=== PATIENT | male | born 1940 | race Caucasian/White ===

== ENCOUNTER 2018-01-13 16:06 | Inpatient (IN) ==
[2018-01-13] MEDS ORDERED: Bisacodyl 10 MG Supp RECTAL PRN (16:12)
[2018-01-13] MEDS ORDERED: Dextrose 50% in Water 50 ML Vial IV.PUSH PRN (16:30)
--- NOTE | 2018-01-13 16:42 | XR ---
EXAM DATE: 01/13/2018 4:40 PM EDT AGE/SEX: 77 years / Male INDICATIONS: Short of breath. CLINICAL DATA: This is the patient's subsequent encounter. Patient reports that signs and symptoms h ave been present for 1 week and indicates a pain score of 0/10. MEDICAL/SURGICAL HISTORY: Hypothyroidism. Anemia. Aortic stenosis. Arteriovenous malformation of colon. CAD. Cardiomyopathy. CKD. Hyperlipidemia. CHF. Cirrhosis. Sleep apnea. Tricuspid regurgitat ion. Venous thromboembolism. Kidney failure. CABG. Defibrillator. Cardiac cath with stent. . COMPARISON: [facility], CHEST 1V SINGLE AP, 01/12/2018. . FINDINGS: A pacing implement is present with control pack over left upper chest. There is mild vascular congest ion and mild hazy bibasilar and perihilar pleural-parenchymal opacity which may be developing edema. CONCLUSION: Probable mild CHF Electronically signed by: Mohit Rogers MD 01/13/2018 4:41 PM EDT
--- NOTE | 2018-01-13 17:09 | P.PNPSYCH ---
- Emotional Severe: Depressed/sad - Diagnosis (1) Acute adjustment disorder with depressed mood Status: Acute - Progress Notes/Response to Treatment Contents of Sessions: Challenges, Coping, Family, Loss, Medical Procedure and Time with Patient: Psychotherapy 16548, 16-37 minutes Targeted Symptoms/Reason for Referral: All symptoms related to patient adjusting to decreased functional ability immediately following medical stay, to encourage ongoing program participation, and to provide empathic listening as patient processes thoughts and feelings about medical complexities. Symptoms include, but are not limited to, fluctuating levels of anxiety, depressed mood, and frustration related to loss of independence and autonomy. Type of Therapeutic Intervention: Supportive, interpersonal, insight oriented, with collateral focus on family/ caregiver system as needed. Treatment Plan: The plan is to continue to provide supportive psychotherapy throughout the patient's stay in the facility. Progress Toward Goals / Interaction/Reaction to Therapy: Met with the patient, his son, and his . His and son present as caring , attentive, and grief stricken with the news that his medical complexities are so significant. Provided support and education regarding how to best cope with his likely upcoming decline. The patient is pleasant, lethargic, and sad, as he tries to understand the choices he and his family are facing regarding his health status. Diagnosis F 43.21 acute adjustment disorder with depressed mood
--- NOTE | 2018-01-13 17:34 | P.PNPAL ---
Subjective Subjective/Interval History: 1700 Patient with acute change in status transferred from [facility] to intensive care. Palliative reconsulted to follow patient during ICU course. Patient already known to palliative had family meeting with family earlier today , see initial H&P and consultation under [facility] rehab admission. Notified of transfer to ICU, discussed with ICU nurse, critical care Dr. Sanchez. Patient mildly tachypneic. O2 sats in the 90s. Cardiac ectopy visible on bedside monitor. Neurologic status appears about the same as earlier he will respond some to questions but for the most part is lethargic.. Met again with family at bedside reviewed with them his underlying conditions and transfer from rehab to ICU for closer monitoring of cardiac, renal, and respiratory status. Review he will now be under intensive care physician care and that likely will have additional labs, diagnostics etc. Reviewed that his underlying conditions remain unchanged and he continues to remain at high risk for deterioration and could necessitate intubation, cardiac intervention etc. Reviewed the possibility of invasive IVs etc. Review again with him CODE STATUS. is still struggling with CODE STATUS she indicates that this time she needs everything to be done for him. Son does indicate that going forward he would not want to be maintained on a ventilator or life support, and that they would still like to meet with hospice and are still considering that as an option. All questions answered to the best of my ability, they have my contact information. H&P from initial consultation yesterday 01/12/18 in [facility] setting: This pt was admitted to [facility] inpatient rehab on 01/08/18. he was admitted from [facility] where he was following acute hospitalization at [facility]. She was admitted there for SOB, edema, CHF. She has apparently had several admissions during 2018 for acute CHF. She has known EF 20 -25% per ECHO 12/07/17, and has biventricular ICD. He has multiple chronic medical problems : MALICK on CPAP, liver cirrhosis, thrombocytopenia, afib on chronic Coumadin, hypertension, CAD, aortic stenosis, tricuspid regurg. He had some acute renal dysfunction during recent hospitalization, however improved at d/c to [facility]. He is on chronic O2. * He is noted to have an ED presentation a few days prior to this on 01/02, in which his noted edema by being on Lasix and requested evaluation. He was noted at that time he presented a challenging management scenario due to fluid status, as well as cardiac status. Recommended for close outpatient monitoring at that time he was not treated with IV hydration or diuresis based on diagnostics. During rehab course he is receiving wraps to lower extremities to assist with edema and fluid mobilization. He is continued diuretics, monitoring of elevated renal functions. Chronic anemia noted. An of INR for chronic Coumadin therapy. Having some diarrhea, C. difficile negative. He is working with PT 60 minutes a day, 5 days per week, OT 60 minutes 5 days per week, and speech therapy 60 minutes 5 days per week. Hospitalist consulted to assist with medical management of his complex medical comorbidities. He is unable to tolerate Entresto due to hypotension. He is continued on diuretics. Nephrology consulted 01/10 for increasing renal functions. (bun 37-->40, creat 2.45-->2.72) Nephrology notes acute kidney failure though not clear what his true baseline is. Clinically appears to have volume overload. Ultrasound obtained. Continue diuretics discontinued lisinopril. Likely with cardiorenal syndrome. unclear if renal function will improve. Prognosis is guarded to poor. Abdominal ultrasound=1. Cirrhotic liver with small amount ascites.2. Trace bilateral pleural effusions, right greater than left 01/12 renal functioning worse BUN44/creat 3.10, nephrology notes cardiorenal syndrome. Will do poorly with dialysis due to multiorgan issues. Patient increasingly lethargic, ammonia levels pending. Nephrology apparently discussed hospice recommendation with patient . + UTI, on Augmentin. Ammonia = 54 Palliative care consulted to assist with clarification of goals of medical treatment. FOLLOW UP MEETING WITH FAMILY WEDS AM: Met with patient son, at length approximally 45 minutes discussion included the following: * Palliative care role, purpose, approach * Additional medical, psychosocial, and spiritual history * Patients general health, functional status, and cognitive changes in the months leading up to the current hospitalization-- details had an acute hospitalization in September of this year for pneumonia, fluid overload seemed to stabilize and recover and then days following that again had acute respiratory, fluid issues and "did not bounce back as well ", and since that time has been in and out of the hospital and rehab setting. Prior to that episode in September he lives at home was independent with ADLs and doing fairly well day-to-day. * family understanding of the current medical problems-review of diagnoses, diagnostics, current clinical assessment, limited treatment options * family understanding of prognosis--review cardiorenal is terminal due to limited ability to treat conditions * Patients goals of care as best understood from advance directives and/or conversations and/or values * Current medical treatment options and benefits/burdens of those options-very limited treatment options going forward for cardiorenal syndrome patient will be expected to require ICU course condition will be terminal at some point even with ongoing aggressive management. * Likely scenarios comparing ongoing aggressive care with a transition to `` comfort measures only//review of role, philosophy, services provided; symptom- based treatment versus curative treatment * CODE STATUS- they are struggling with possible DNR, request full code for now while they discuss as a family * Legal decision makers per [place] statutes- is proxy. she wishes to involve his children for support. * Questions answered to the best of my ability * Palliative care contact information provided and son are appropriately tearful at times . They are struggling to accept patient decline , they verbalize they have seen him "bounce back "from so many illnesses since his initial WA in the . They verbalize if patient is expected to continue to decline and conditions are not reversible he would probably want to be home and comfortable for whatever time he has left. However they are struggling to make him a DNR, review with them that he is high risk for intubation and subsequent cardiac decline and that if he is intubated it would be very unlikely he would be able to be medically extubated and he would remain high risk for other further complications during that course. Review of hospice services they indicate ultimately he would probably want to go home with hospice services to be peaceful at end-of-life. They are open to meeting with hospice to gain more information though indicate they would not likely proceed with enrollment today they need more time to talk as a family and process. They indicate the patient never documented his wishes nor would he ever talk about or illness and what his wishes would be. Advance Directives Living Will: Never completed Health Care Surrogate: Never completed Durable Power of Documentum Consultant: Never completed Objective Physical Exam: SEE PE earlier note under [facility] admission Assessment and Plan Pertinent Non-Medical Issues: Psychosocial: Originally from [place]. 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 Spiritual:Gnosticist Legal:Pt has been alert and oriented, however orientation, alertness fluctuates , likely secondary to his multiple medical conditions. Best supported in decision-making by his who would be appropriate legal proxy. Ethical issues impacting care: Important Contacts: Katie Calderon [phone] [facility] [phone] Prognosis: This patient was admitted to [facility] for acute inpatient rehabilitation on 01/08/18. He has had multiple hospitalizations this year for CHF, shortness of breath and edema. He has had acute on chronic renal failure. He has had worsening BUN and multiple chronic medical comorbidities including MALICK requiring CPAP, O2 dependent, liver cirrhosis, A. fib on chronic Coumadin, aortic stenosis. He would not be a good candidate for dialysis due to multiorgan issues. He has had hypotension. increasingly difficult to treat his heart failure secondary to renal failure, renal failure worsening secondary to cardiac status. His conditions will continue to worsen even with ongoing aggressive management. Appropriate for hospice for ES heart failure, if goals compatible. Code Status: Full Code Plan: Legal decision maker: Legal:Pt has been alert and oriented, however orientation , alertness fluctuates, likely secondary to his multiple medical conditions. Best supported in decision-making by his who would be appropriate legal proxy Goals: , son struggling to accept patient decline and deteriorating condition. They are not ready for a DNR. They request to meet with hospice to obtain more information they will likely want movement at some point though are not quite ready today. Hospice has been ordered. They wish to continue discussions , and processing over the next day or so. CODE STATUS: full code. SYMPTOMS: --Dyspnea-poor activity tolerance. Dyspnea on any exertion. O2 dependent. MALICK uses CPAP at night. End-stage heart failure EF 20-25%. Underlying COPD. Last CXR 01/08=Cardiomegaly with basilar dependent atelectasis. On PRN nebulizers. If goals comfort oriented benefit from low dose PRN opiates, benzodiazepines for tachypnea, dyspnea. --Weakness/debility-patient with multiple hospitalizations during 2018 for CHF, recently discharged to [facility] and rehab for rehab, and then to [facility] from [facility]. He has very limited activity tolerance secondary to medical conditions which limited his ability to rehabilitate. He has impaired coordination and is requiring assistance with ADLs. Likely limited to minimal benefits from ongoing rehabilitation to deconditioning, multiple advanced disease processes. --Pain-endorses pain to bilateral lower extremities. +chronic edema, compression wraps. probably neuropathic component. On lyrica, + prn ultram, tylenol. Last dose ultram 12 midnight. Avoid use/ Cautious use of stronger prns /opiates due to neuro/resp status if goals aggressive. If goals comfort oriented may benefit from PRN such as norco. Palliative care will continue to follow during hospital course as condition evolves, to assist patient/decision-maker with understanding of medical conditions, weighing benefits/burdens of treatment options, for clarification of goals of treatment. Additionally will assist with any symptoms of palliative concern Attestation Attestation: To help prompt me to consider important information that might be impacting today's encounter and assessment, information from prior notes written by myself or my colleagues may have been "brought forward" into today's note. My signature on this note, however, is an attestation that I personally performed the exam, history, and/or decision-making noted today, and, unless otherwise indicated, the interactions with patient, family, and staff as well as the review of records all occurred today. I also attest that the listed assessment and stated plan reflect my best clinical judgment today based on the combination of historical information, prior notes, and today's exam/ interactions. When time spent is documented, it refers only to time spent today by the signer, or if indicated, combined time spent today by collaborating physician/nurse practitioner.
--- NOTE | 2018-01-13 18:53 | MB ---
cc: Brigido Moyer MD DATE: 01/13/2018 HISTORY OF PRESENT ILLNESS: The patient is a 77-year-old male with multiple comorbidities which include cirrhosis of the liver, COPD, obstructive sleep apnea on CPAP, hypothyroidism, atrial fibrillation on Coumadin, hypertension, coronary artery disease with history of coronary artery bypass graft and aortic stenosis. In addition, the patient has a cardiomyopathy with ejection fraction of 20% to 25% on the last echo from 12/07/2017 and has a biventricular ICD. He had several admissions this year due to [id number] CHF. The patient was admitted to [facility] on 01/08/2018 for CHF compensation and renal failure. The patient was found to have a BUN of 37 with creatinine of 2.45 on admission and during his hospital course, he was seen by nephrology service and palliative care. The patient had worsening renal dysfunction with a BUN of 44 and creatinine 3.90. He had an ultrasound of the abdomen on 01/11, which showed cirrhosis of liver with small amount of ascites, trace bilateral pleural effusions with no evidence of hydronephrosis. The patient was placed on diuretics. In [facility], patient had an episode of hypotension and was subsequently transferred to ICU for close observation. Critical Care Medicine was consulted for critical care management. ABG was performed on CPAP with 3.5 liter oxygen, which showed a pH of 7.42, CO2 36, pO2 of 71, bicarbonate of 22, and saturation of 91%. When seen in the ICU the patient is awake, alert, currently on 2 liter oxygen with saturation 99% and a blood pressure of 103/67 with a pulse of 71. PAST MEDICAL HISTORY: Significant for COPD, obstructive sleep apnea on CPAP, CHF with EF of 20% to 25%, cirrhosis of the liver, chronic kidney disease, aortic stenosis, anemia of chronic disease. PAST SURGICAL HISTORY: Previous CABG, previous cholecystectomy, previous stent placement. FAMILY HISTORY: Noncontributory. ALLERGIES: LEVAQUIN AND PREDNISONE. SOCIAL HISTORY: Nonsmoker, nondrinker. MEDICATIONS: Reviewed. REVIEW OF SYSTEMS: As per HPI. Rest of review of his systems is limited as the patient is a poor historian. PHYSICAL EXAMINATION: GENERAL: A 77-year-old male lying in bed in no acute distress. VITAL SIGNS: Afebrile, pulse of 73, blood pressure 103/67, saturation 96% to 97% on 2 liter oxygen. HEENT: Atraumatic, normocephalic. Pupils are equal, round and reactive to the accommodation. Extraocular muscles intact. Conjunctivae pink. Nonicteric sclerae. Oral mucosa within normal. NECK: Supple. No JVD, adenopathy, or thyromegaly. Trachea midline. CARDIOVASCULAR: Regular rate and rhythm. Normal S1, S2. No murmurs, rubs or gallops noted. LUNGS: Bilateral equal air entry. No rales or wheezing. ABDOMEN: Soft, nontender, nondistended. Positive bowel sounds. EXTREMITIES: No cyanosis, clubbing. 3+ edema. NEUROLOGIC: No focal sensory deficit. LABORATORY DATA: ABG showed a pH of 7.42, CO2 36, PaO2 71, bicarbonate 22, saturation 91%. LABORATORY DATA: Reviewed. IMPRESSION: 1. Respiratory insufficiency. 2. Zvyde-vu-kzslxfc kidney disease. 3. Urinary tract infection. 4. Coagulopathy. 5. Cirrhosis of liver. 6. Anemia and thrombocytopenia. 7. Cardiomyopathy with ejection fraction of 20% to 25%. 8. History of congestive heart failure and moderate to severe aortic stenosis. 9. Atrial fibrillation, rate controlled. 10. Coronary artery disease. 11. Chronic obstructive pulmonary disease. 12. Obstructive sleep apnea on CPAP. RECOMMENDATIONS: 1. Monitor neuro status closely and avoid any sedatives. We will obtain a CT scan of the brain without contrast. 2. Continue with oxygen and maintain sats above 92%. 3. Bronchodilators in the form of DuoNeb q. 4 plus q. 2 p.r.n. for shortness of breath. 4. Monitor heart rate and blood pressure closely and maintain MAP greater than 65 mmHg. We will check a lactic acid level. Hold Coreg, Multaq, and Aldactone. 5. His echocardiogram from November showed fraction of 20% to 25%. 6. Continue with diuretics, Lasix 40 mg IV daily. 7. Monitor renal function and I's and O's, and avoid nephrotoxins. Dr. Preston from nephrology service is following. Continue with diuretics. Ultrasound of the abdomen from 01/11 showed no evidence of hydronephrosis, cirrhosis of the liver with small amount of ascites. 8. Keep n.p.o. for now until mental status improves and will place on Protonix 40 mg daily for GI prophylaxis. 9. Monitor for signs of infections which include fever and WBC. We will place on Rocephin 1 g IV daily for a urinary tract infection. We will obtain blood cultures x2 sets. Repeat UA with culture if indicated and check chest x-ray. 10. Monitor CBC and coags. INR 3.1 today. We will hold Coumadin. 11. Place on sliding scale insulin with Accu-Cheks to maintain euglycemia. 12. GI prophylaxis with Protonix 40 mg daily and DVT prophylaxis with SCDs. In addition, the patient is on Coumadin, which will be held. INR 3.[address] central line if indicated. 14. Further recommendations will be based on hospital course. MD GEMA Campbell/ , 04:48 PM , 05:03 PM
[2018-01-13 18:57] LABS: Baso # (Auto) 0.1 th/mm3 (0.0-0.2); Baso % (Auto) 1.1 % (0.0-2.0); Eos # (Auto) 0.2 th/mm3 (0.0-0.4); Eos % (Auto) 3.7 % (0.0-4.0); Hematocrit 38.7 % (39.0-51.0); Hemoglobin 12.9 gm/dL (13.0-17.0); Lymph # (Auto) 1.3 th/mm3 (1.0-4.8); Lymph % (Auto) 20.7 % (9.0-44.0); Mean Corpuscular HGB Conc 33.4 % (32.0-36.0); Mean Corpuscular Hemoglobin 29.5 pg (27.0-34.0); Mean Corpuscular Volume 88.3 fL (80.0-100.0); Mean Platelet Volume 11.1 fL (7.0-11.0); Mono # (Auto) 0.7 th/mm3 (0.0-0.9); Neut # (Auto) 4.1 th/mm3 (1.8-7.7); Neut % (Auto) 63.5 % (16.0-70.0); Platelet Count 107 th/mm3 (150-450); Red Blood Count 4.38 mil/mm3 (4.50-5.90); Red Cell Distribution Width 18.2 % (11.6-17.2); White Blood Count 6.5 th/mm3 (4.0-11.0)
[2018-01-13 19:11] LABS: Albumin 3.3 g/dL (3.4-5.0); Anion Gap 12 meq/L (5-15); Aspartate Aminotransferase 35 U/L (15-37); Blood Urea Nitrogen 49 mg/dL (7-18); Calcium 8.9 mg/dL (8.5-10.1); Carbon Dioxide 24.2 meq/L (21.0-32.0); Chloride 98 meq/L (98-107); Glomerular Filtration Rate 15 mL/min (>89); Glucose,Random 94 mg/dL (74-106); Sodium 134 meq/L (136-145)
[2018-01-13 19:12] LABS: Alanine Aminotransferase 34 U/L (12-78)
[2018-01-13 19:14] LABS: Alkaline Phosphatase 96 U/L (45-117); Total Protein 6.3 g/dL (6.4-8.2)
[2018-01-13 19:38] LABS: Ovalocytes 1+
--- NOTE | 2018-01-13 20:04 | CT ---
EXAM DATE: 01/13/2018 7:51 PM EDT AGE/SEX: 77 years / Male INDICATIONS: Altered mental status. CLINICAL DATA: This is the patient's initial encounter. Patient reports that signs and symptoms have been present for 1 day and indicates a pain score of 0/10. MEDICAL/SURGICAL HISTORY: Cardiovascular disease. Hypertension. Anemia. Chronic kidney disease. None. RADIATION DOSE: 42.53 CTDI (mGy) COMPARISON: [facility], CT HEAD W/O CONTRAST, 01/09/2018. . TECHNIQUE: CT of the head without contrast. Using automated exposure control and adjustment of the mA and/or kV according to patient size, radiation dose was kept as low as reasonably achievable to ob tain optimal diagnostic quality images. DICOM format image data is available electronically for revi ew and comparison. FINDINGS: Cerebrum: The ventricles are normal for age. No evidence of midline shift, mass lesion, hemorrhage or acute infarction. No extraaxial fluid collections are seen. Posterior Fossa: The cerebellum and brainstem are intact. The 4th ventricle is midline. The cerebe llopontine angle is unremarkable. Extracranial: The visualized portion of the orbits is intact. Skull: The calvaria is intact. No evidence of skull fracture. CONCLUSION: 1. Negative for acute process . Electronically signed by: Akhil Cuellar MD 01/13/2018 8:03 PM EDT
[2018-01-13] MEDS: Senna/Docusate Sodium 8.6/50 MG Tablet PO SCH (20:48)
[2018-01-13] MEDS: Insulin NovoLIN Regular Correctional Sugar Inj SQ SCH (20:50)
[2018-01-14] MEDS: Insulin NovoLIN Regular Correctional Sugar Inj SQ SCH ×6 (00:17→20:45)
[2018-01-14] MEDS: Chlorhexidine Gluconate 2% 1 Pack (2 Cloths) TOPICAL SCH (03:49)
[2018-01-14] MEDS ORDERED: Chlorhexidine Gluconate 2% 1 Pack (2 Cloths) TOPICAL PRN (04:00)
[2018-01-14 04:20] LABS: Baso # (Auto) 0.1 th/mm3 (0.0-0.2); Baso % (Auto) 1.1 % (0.0-2.0); Eos # (Auto) 0.4 th/mm3 (0.0-0.4); Eos % (Auto) 5.2 % (0.0-4.0); Hematocrit 39.2 % (39.0-51.0); Hemoglobin 12.9 gm/dL (13.0-17.0); Lymph # (Auto) 1.4 th/mm3 (1.0-4.8); Lymph % (Auto) 18.8 % (9.0-44.0); Mean Corpuscular Hemoglobin 29.2 pg (27.0-34.0); Mean Corpuscular Volume 88.7 fL (80.0-100.0); Mean Platelet Volume 11.1 fL (7.0-11.0); Mono # (Auto) 0.9 th/mm3 (0.0-0.9); Mono % (Auto) 11.9 % (0.0-8.0); Neut # (Auto) 4.7 th/mm3 (1.8-7.7); Platelet Count 101 th/mm3 (150-450); Red Blood Count 4.42 mil/mm3 (4.50-5.90); Red Cell Distribution Width 17.8 % (11.6-17.2); White Blood Count 7.5 th/mm3 (4.0-11.0)
[2018-01-14 04:45] LABS: Alanine Aminotransferase 30 U/L (12-78); Anion Gap 12 meq/L (5-15); Aspartate Aminotransferase 26 U/L (15-37); Blood Urea Nitrogen 44 mg/dL (7-18); Calcium 8.7 mg/dL (8.5-10.1); Carbon Dioxide 24.7 meq/L (21.0-32.0); Chloride 99 meq/L (98-107); Glomerular Filtration Rate 16 mL/min (>89); Glucose,Random 69 mg/dL (74-106); Potassium 3.9 meq/L (3.5-5.1); Sodium 136 meq/L (136-145)
[2018-01-14 04:46] LABS: INR 2.7 Ratio; Prothrombin Time 27.7 sec (9.8-11.6)
[2018-01-14 04:47] LABS: Alkaline Phosphatase 88 U/L (45-117); Total Protein 5.8 g/dL (6.4-8.2)
[2018-01-14] MEDS ORDERED: Pantoprazole Inj 40 MG Vial IV.PUSH SCH (09:00)
[2018-01-14] MEDS ORDERED: Dextrose 5%/NaCl 0.9% Inj 1,000 ML IV.CONT SCH (09:15)
[2018-01-14] MEDS: Ferrous Sulfate 325 MG Tablet PO SCH (09:41)
[2018-01-14] MEDS: Senna/Docusate Sodium 8.6/50 MG Tablet PO SCH ×2 (09:41→20:46)
--- NOTE | 2018-01-14 09:46 | P.PNCC ---
Subjective Subjective Remarks/Hospital Course: The patient is a 77-year-old male with multiple comorbidities which include cirrhosis of the liver, COPD, obstructive sleep apnea on CPAP,hypothyroidism, atrial fibrillation on Coumadin, hypertension, coronary artery disease with history of coronary artery bypass graft and aortic stenosis. In addition, the patient has a cardiomyopathy with ejection fraction of 20% to 25% on the last echo from 12/07/2017 and has a biventricular ICD. He had several admissions this year due to [id number] CHF. The patient was admitted to [facility] on 01/08/2018 for CHF compensation and renal failure. The patient was found to have a BUN of 37 with creatinine of 2.45 on admission and during his hospital course, he was seen by nephrology service and palliative care. The patient had worsening renal dysfunction with a BUN of 44 and creatinine 3.90. He had an ultrasound of the abdomen on 01/11, which showed cirrhosis of liver with small amount of ascites, trace bilateral pleural effusions with no evidence of hydronephrosis. The patient was placed on diuretics. In [place] [facility], patient had an episode of hypotension and was subsequently transferred to ICU for close observation. Critical Care Medicine was consulted for critical care management. ABG was performed on CPAP with 3.5 liter oxygen, which showed a pH of 7.42, CO2 36, pO2 of 71, bicarbonate of 22, and saturation of 91%. When seen in the ICU the patient is awake, alert, currently on 2 liter oxygen with saturation 99% and a blood pressure of 103/67 with a pulse of 71. Subjective 16: Currently on 2 L nasal cannula and hemodynamically stable. CT brain overnight revealed no acute intracranial findings. Patient is hypoglycemic this a.m. Objective Vital Signs / I&O: Vital Signs 01/13/18 20:00 01/13/18 20:09 01/13/18 23:47 Temperature 97.9 F Pulse Rate 84 74 73 Respiratory Rate 15 17 24 Blood Pressure 112/79 Pulse Oximetry 95 97 01/13/18 23:49 01/14/18 00:00 01/14/18 04:00 Temperature 97.9 F 97.8 F Pulse Rate 71 69 Respiratory Rate 22 22 Blood Pressure 109/71 105/66 Pulse Oximetry 94 L 96 96 01/14/18 04:13 01/14/18 08:18 Temperature Pulse Rate 70 70 Respiratory Rate 25 H 13 Blood Pressure Pulse Oximetry 96 96 Intake & Output 01/13/18 01/14/18 01/14/18 18:59 06:59 18:59 Intake Total 100 / 100 Output Total 1400 / 1400 Balance -1300 / -1300 Weight 123 kg Intake: IV 100 / 100 Rocephin Inj 1,000 MG In NS Inj 100 / 100 100 ML @ 200 mls/hr IV.SIG Q24H RADHA Rx#:[id number] Oral 0 / 0 Output: Urine 1400 / 1400 Other: Date of Last Bowel Movement 01/13/18 # Bowel Movements 0 Weight On Admission 124.1 kg Result Diagrams: 01/14/18 03:19 01/14/18 03:19 Imaging: Chest X-Ray 01/13/18 16:12 CONCLUSION: Probable mild CHF Head CT 01/13/18 16:51 CONCLUSION: 1. Negative for acute process . Objective Remarks: GENERAL: 77-year-old male currently resting in bed in no acute distress SKIN: Warm and dry. HEAD: Atraumatic. Normocephalic. EYES: Pupils equal and round. No scleral icterus. No injection or drainage. ENT: No nasal bleeding or discharge. Mucous membranes pink and moist. NECK: Trachea midline. No JVD. CARDIOVASCULAR: Regular rate and rhythm. 2/6 systolic murmur RESPIRATORY: No accessory muscle use. Clear to auscultation. Breath sounds equal bilaterally. GASTROINTESTINAL: Abdomen soft, non-tender, nondistended. Hepatic and splenic margins not palpable. MUSCULOSKELETAL: Extremities without clubbing, cyanosis, or edema. No obvious deformities. NEUROLOGICAL: Awake and alert. No obvious cranial nerve deficits. Motor grossly within normal limits. Five out of 5 muscle strength in the arms and legs. Normal speech. PSYCHIATRIC: Appropriate mood and affect; insight and judgment normal. Assessment and Plan - Assessment and Plan Plan: Neuro/Psych: Depressive disorder NOS Allergic rhinitis Acetaminophen 650 p.o. every 6 hours as needed fever Continue duloxetine 30 mg twice daily/home medication for depression Continue cetirizine 10 mg daily for allergic rhinitis Resuming ropinirole 1 mg daily CV: Atrial fibrillation rate controlled Severe aortic stenosis chronic systolic heart failure ejection fraction 20-25% History of biventricular ICD Essential hypertension Hyperlipidemia Coronary artery disease status post stent Continue aspirin 81 mg daily/home medication Holding carvedilol 3.125 mg p.o. twice daily in light of hypertension Resume dronedarone 400 mg twice daily for atrial fibrillation. Resume Midodrine 5 mg twice daily for hypertension Holding bumetanide 2 mg IV twice daily and metolazone 5 mg daily Currently on furosemide 40 mg IV daily Holding pravastatin 40 mg a day for distal edema. Resume clinically indicated Resp: Acute respiratory insufficiency Obstructive sleep apnea Nasal cannula to maintain saturations greater than equal 92% Incentive spirometry while awake Albuterol/ipratropium aerosols every 4 hours with albuterol aerosols every 2 hours as needed for dyspnea CPAP as needed GI: Gastroesophageal reflux disease Elevated total bilirubin Hypoalbuminemia History of liver cirrhosis biopsy-proven Renal diet Currently on pantoprazole 40 mg daily./On omeprazole 20 mg at home Docusate sodium/senna 1 tablet twice daily for bowel regimen : No indication for Jean catheter Endo: Hypothyroidism Relative hypoglycemia Sliding scale insulin accurate I's and continuous sutures 75 normal saline at 40 cc an hour 1 L. Check cortisol, TSH recheck UA for sources of hypoglycemia Continue levothyroxine at 88 mcg daily. Check TSH in a.m. Renal: Acute kidney injury in setting of chronic kidney disease stage IIIa Heme: Chronic warfarin use 1.5 mg daily. Normocytic anemia Thrombocytopenia CBC stable. No indication for transfusion of blood products at this time. Resume warfarin at 1 mg q. Thursday. Recheck INR in a.m. 01/15 ID: Urinary tract infection E faecalis currently on ceftriaxone Currently in ceftriaxone 1 g IV daily. We will switch to cefepime 5 mg IV daily Repeat blood cultures 2, UA pending MSK: Generalized debility PT evaluate and treat FEN Replace electrolytes as clinically indicated [place] -Utilize peripheral IV. Central line if indicated Prophylaxis -GI- Pantoprazole- - - DVT SCDs heparin subcu Level 2 follow-up. Patient is stable from critical care medicine standpoint. Assign care to hospitalist in a.m. 01/15.
--- NOTE | 2018-01-14 11:14 | P.PNPAL ---
Reason for Visit Reason for visit: a. To assist with evaluation and management of symptoms including: dyspnea, weakness/debility b. To assist medical decision maker(s) with: better understanding of current medical conditions; weighing benefits/burdens of medical treatment options; making medical treatment decisions. Subjective Subjective/Interval History: Pt seen today to follow up on dyspnea, lethargy, following transfer to ICU yesterday. Has remained stable overnight, diuresed well 1400 Ml urine out in 24 hr. On CPAP at night. CBC unchanged/unremarkable. BUN 44/creatinine 3.75. S/p CT brain yesterday, neg for acute process. BG low,61, received D5W IV. Ordered for diet, per nursing took applesauce well this am. Bps low 100s/60s-70. Pt seen in room, nurse present. He awakens to my verbal. Oriented to self, family. Does not remain alert enough to answer most of my other orientation questions. He does follow simple commands, when he can be kept awake. He does not seem to understand he is in ICU/ or why. No apparent pain/distress. Does not answer pain question or SOB questions. nursing informs went to waiting room, will inform me when she returns. Son arrived shortly after, he is working with on goals/decision making. Updated on current assessment, conditions. He asked if pt is doing better enough to go back to rehab or if hospice should still be considered. Review that while pt conditions may be stabilized at this time, his underlying cardiac, renal conditions will persist, and will be expected to cont to experience cardio-pulmonary complications/exacerbations related to fluid status and difficulty balancing and advanced heart failure. Review that he remains a candidate for hospice for comfort with advanced disease/end-stage disease process. He indicates they are still discussing as a family. Review with him again CODE STATUS and that he will continue to remain at risk for possible need for cardiac or pulmonary interventions. Review not clear if he will be a candidate for [place] re[facility] again that will be up to them to evaluate if he can tolerate that level of rehabilitation. Further review that his medical and clinical conditions will greatly limit any rehab potential. All questions answered to the best my ability. They have palliative contact information. H&P from initial consultation yesterday 01/12/18 in [place] setting: This pt was admitted to [place] inpatient rehab on 01/08/18. he was admitted from [facility] where he was following acute hospitalization at [facility]. She was admitted there for SOB, edema, CHF. She has apparently had several admissions during 2018 for acute CHF. She has known EF 20 -25% per ECHO 12/07/17, and has biventricular ICD. He has multiple chronic medical problems : MALICK on CPAP, liver cirrhosis, thrombocytopenia, afib on chronic Coumadin, hypertension, CAD, aortic stenosis, tricuspid regurg. He had some acute renal dysfunction during recent hospitalization, however improved at d/c to PO rehab. He is on chronic O2. * He is noted to have an ED presentation a few days prior to this on 01/02, in which his noted edema by being on Lasix and requested evaluation. He was noted at that time he presented a challenging management scenario due to fluid status, as well as cardiac status. Recommended for close outpatient monitoring at that time he was not treated with IV hydration or diuresis based on diagnostics. During rehab course he is receiving wraps to lower extremities to assist with edema and fluid mobilization. He is continued diuretics, monitoring of elevated renal functions. Chronic anemia noted. An of INR for chronic Coumadin therapy. Having some diarrhea, C. difficile negative. He is working with PT 60 minutes a day, 5 days per week, OT 60 minutes 5 days per week, and speech therapy 60 minutes 5 days per week. Hospitalist consulted to assist with medical management of his complex medical comorbidities. He is unable to tolerate Entresto due to hypotension. He is continued on diuretics. Nephrology consulted 01/10 for increasing renal functions. (bun 37-->40, creat 2.45-->2.72) Nephrology notes acute kidney failure though not clear what his true baseline is. Clinically appears to have volume overload. Ultrasound obtained. Continue diuretics discontinued lisinopril. Likely with cardiorenal syndrome. unclear if renal function will improve. Prognosis is guarded to poor. Abdominal ultrasound=1. Cirrhotic liver with small amount ascites.2. Trace bilateral pleural effusions, right greater than left 01/12 renal functioning worse BUN44/creat 3.10, nephrology notes cardiorenal syndrome. Will do poorly with dialysis due to multiorgan issues. Patient increasingly lethargic, ammonia levels pending. Nephrology apparently discussed hospice recommendation with patient . + UTI, on Augmentin. Ammonia = 54 Palliative care consulted to assist with clarification of goals of medical treatment. FOLLOW UP MEETING WITH FAMILY WEDS AM: Met with patient son, at length approximally 45 minutes discussion included the following: * Palliative care role, purpose, approach * Additional medical, psychosocial, and spiritual history * Patients general health, functional status, and cognitive changes in the months leading up to the current hospitalization-- details had an acute hospitalization in September of this year for pneumonia, fluid overload seemed to stabilize and recover and then days following that again had acute respiratory, fluid issues and "did not bounce back as well ", and since that time has been in and out of the hospital and rehab setting. Prior to that episode in September he lives at home was independent with ADLs and doing fairly well day-to-day. * family understanding of the current medical problems-review of diagnoses, diagnostics, current clinical assessment, limited treatment options * family understanding of prognosis--review cardiorenal is terminal due to limited ability to treat conditions * Patients goals of care as best understood from advance directives and/or conversations and/or values * Current medical treatment options and benefits/burdens of those options-very limited treatment options going forward for cardiorenal syndrome patient will be expected to require ICU course condition will be terminal at some point even with ongoing aggressive management. * Likely scenarios comparing ongoing aggressive care with a transition to `` comfort measures only//review of role, philosophy, services provided; symptom- based treatment versus curative treatment * CODE STATUS- they are struggling with possible DNR, request full code for now while they discuss as a family * Legal decision makers per [place] statutes- is proxy. she wishes to involve his children for support. * Questions answered to the best of my ability * Palliative care contact information provided and son are appropriately tearful at times . They are struggling to accept patient decline , they verbalize they have seen him "bounce back "from so many illnesses since his initial [place] in the . They verbalize if patient is expected to continue to decline and conditions are not reversible he would probably want to be home and comfortable for whatever time he has left. However they are struggling to make him a DNR, review with them that he is high risk for intubation and subsequent cardiac decline and that if he is intubated it would be very unlikely he would be able to be medically extubated and he would remain high risk for other further complications during that course. Review of hospice services they indicate ultimately he would probably want to go home with hospice services to be peaceful at end-of-life. They are open to meeting with hospice to gain more information though indicate they would not likely proceed with enrollment today they need more time to talk as a family and process. They indicate the patient never documented his wishes nor would he ever talk about or illness and what his wishes would be. Advance Directives Living Will: Never completed Health Care Surrogate: Never completed Durable Power of Electronic Science Teacher: Never completed Objective Vital Signs: Vital Signs 01/13/18 20:00 01/13/18 20:09 01/13/18 23:47 Temperature 97.9 F Pulse Rate 84 74 73 Respiratory Rate 15 17 24 Blood Pressure 112/79 Pulse Oximetry 95 97 01/13/18 23:49 01/14/18 00:00 01/14/18 04:00 Temperature 97.9 F 97.8 F Pulse Rate 71 69 Respiratory Rate 22 22 Blood Pressure 109/71 105/66 Pulse Oximetry 94 L 96 96 01/14/18 04:13 01/14/18 08:18 Temperature Pulse Rate 70 70 Respiratory Rate 25 H 13 Blood Pressure Pulse Oximetry 96 96 Intake & Output 01/13/18 01/14/18 01/14/18 18:59 06:59 18:59 Intake Total 100 / 100 Output Total 1400 / 1400 Balance -1300 / -1300 Weight 123 kg Intake: IV 100 / 100 Rocephin Inj 1,000 MG In NS Inj 100 / 100 100 ML @ 200 mls/hr IV.SIG Q24H [facility] Rx#:[id number] Oral 0 / 0 Output: Urine 1400 / 1400 Other: Date of Last Bowel Movement 01/13/18 # Bowel Movements 0 Weight On Admission 124.1 kg Physical Exam: CONSTITUTIONAL/GENERAL: This is an obese elderly male, lethargic SKIN: No jaundice, rashes, or lesions. Ecchymoses left upper extremity. No wounds seen anteriorly. Skin warm and dry. SCDs LE, edema improved LE. HEAD: Atraumatic. Normocephalic. EYES: Pupils equal and round and reactive. Extraocular motions intact. No scleral icterus. No injection or drainage. Fundi not examined. ENT: Hard of hearing. Nose without bleeding or purulent drainage. Throat without visible erythema, exudates, masses, or lesions. CARDIOVASCULAR: Irregular, heart sounds distant. No JVD. improved edema to lower extremity. pedal pulses palpable RESPIRATORY/CHEST: Symmetric, unlabored respirations. RR20. Clear , crackles left base. GASTROINTESTINAL: Abdomen soft,obese, non-tender, nondistended. No palpable masses. No guarding. Bowel sounds hypoactive. GENITOURINARY: Without palpable bladder distension. sol catheter, clear yellow urine MUSCULOSKELETAL: Extremities without clubbing, cyanosis. improved edema BLE. No joint tenderness or effusion noted. No calf tenderness. NEUROLOGICAL: lethargic. arouses some. Oriented to person,family. Difficulty staying awake to answer other questions. follows simple commands when he can stay away for follow PSYCHIATRIC: No obvious anxiety/depression. lethargic. Diagnostic Tests Laboratory: Laboratory Results - last 72 hr 01/13/18 01/13/18 01/13/18 17:45 18:24 18:29 WBC 6.5 RBC 4.38 L Hgb 12.9 L Hct 38.7 L MCV 88.3 MCH 29.5 MCHC 33.4 RDW 18.2 H Plt Count 107 L MPV 11.1 H Prelim Diff (Auto) Slide review pending Neut % (Auto) 63.5 Lymph % (Auto) 20.7 [place] % (Auto) 11.0 H Eos % (Auto) 3.7 Baso % (Auto) 1.1 Neut # (Auto) 4.1 Lymph # (Auto) 1.3 [place] # (Auto) 0.7 Eos # (Auto) 0.2 Baso # (Auto) 0.1 WBC Differential . Diff Scan Auto diff confirmed Differential Comment . Platelet Estimate Low L Platelet Morphology Enlarged H Ovalocytes 1+ H PT INR Sodium Potassium Chloride Carbon Dioxide Anion Gap BUN Creatinine Estimated GFR POC Glucose Random Glucose Calcium Total Bilirubin AST ALT Alkaline Phosphatase Ammonia 26 Total Protein Albumin Nasal Screen MRSA (PCR) Cancelled 01/13/18 01/13/18 01/14/18 18:29 20:50 00:13 WBC RBC Hgb Hct MCV MCH MCHC RDW Plt Count MPV Prelim Diff (Auto) Neut % (Auto) Lymph % (Auto) [place] % (Auto) Eos % (Auto) Baso % (Auto) Neut # (Auto) Lymph # (Auto) [place] # (Auto) Eos # (Auto) Baso # (Auto) WBC Differential Diff Scan Differential Comment Platelet Estimate Platelet Morphology Ovalocytes PT INR Sodium 134 L Potassium 4.0 Chloride 98 Carbon Dioxide 24.2 Anion Gap 12 BUN 49 H Creatinine 3.88 H Estimated GFR 15 L POC Glucose 80 80 Random Glucose 94 Calcium 8.9 Total Bilirubin 1.5 H AST 35 ALT 34 Alkaline Phosphatase 96 Ammonia Total Protein 6.3 L Albumin 3.3 L Nasal Screen MRSA (PCR) 01/14/18 01/14/18 01/14/18 03:19 03:19 03:19 WBC 7.5 RBC 4.42 L Hgb 12.9 L Hct 39.2 MCV 88.7 MCH 29.2 MCHC 33.0 RDW 17.8 H Plt Count 101 L MPV 11.1 H Prelim Diff (Auto) Neut % (Auto) 63.0 Lymph % (Auto) 18.8 [place] % (Auto) 11.9 H Eos % (Auto) 5.2 H Baso % (Auto) 1.1 Neut # (Auto) 4.7 Lymph # (Auto) 1.4 [place] # (Auto) 0.9 Eos # (Auto) 0.4 Baso # (Auto) 0.1 WBC Differential . Diff Scan Differential Comment Auto diff final Platelet Estimate Platelet Morphology Ovalocytes PT 27.7 H INR 2.7 Sodium 136 Potassium 3.9 Chloride 99 Carbon Dioxide 24.7 Anion Gap 12 BUN 44 H Creatinine 3.75 H Estimated GFR 16 L POC Glucose Random Glucose 69 L Calcium 8.7 Total Bilirubin 1.5 H AST 26 ALT 30 Alkaline Phosphatase 88 Ammonia Total Protein 5.8 L Albumin 3.0 L Nasal Screen MRSA (PCR) 01/14/18 01/14/18 01/14/18 03:35 08:32 09:11 WBC RBC Hgb Hct MCV MCH MCHC RDW Plt Count MPV Prelim Diff (Auto) Neut % (Auto) Lymph % (Auto) [place] % (Auto) Eos % (Auto) Baso % (Auto) Neut # (Auto) Lymph # (Auto) [place] # (Auto) Eos # (Auto) Baso # (Auto) WBC Differential Diff Scan Differential Comment Platelet Estimate Platelet Morphology Ovalocytes PT INR Sodium Potassium Chloride Carbon Dioxide Anion Gap BUN Creatinine Estimated GFR POC Glucose 80 61 L 69 Random Glucose Calcium Total Bilirubin AST ALT Alkaline Phosphatase Ammonia Total Protein Albumin Nasal Screen MRSA (PCR) 01/14/18 09:46 WBC RBC Hgb Hct MCV MCH MCHC RDW Plt Count MPV Prelim Diff (Auto) Neut % (Auto) Lymph % (Auto) [place] % (Auto) Eos % (Auto) Baso % (Auto) Neut # (Auto) Lymph # (Auto) [place] # (Auto) Eos # (Auto) Baso # (Auto) WBC Differential Diff Scan Differential Comment Platelet Estimate Platelet Morphology Ovalocytes PT INR Sodium Potassium Chloride Carbon Dioxide Anion Gap BUN Creatinine Estimated GFR POC Glucose 75 Random Glucose Calcium Total Bilirubin AST ALT Alkaline Phosphatase Ammonia Total Protein Albumin Nasal Screen MRSA (PCR) Result Diagrams: 01/14/18 03:19 01/14/18 03:19 Microbiology: Microbiology 01/13/18 18:25 Aerobic Blood Culture - Preliminary Blood - Peripheral No growth in 1 day Anaerobic Blood Culture - Preliminary No growth in 1 day 01/13/18 18:29 Aerobic Blood Culture - Preliminary Blood - Peripheral No growth in 1 day Anaerobic Blood Culture - Preliminary No growth in 1 day Imaging: Impressions Chest X-Ray 01/13/18 16:12 CONCLUSION: Probable mild CHF Head CT 01/13/18 16:51 CONCLUSION: 1. Negative for acute process . Procedures: . Assessment and Plan - Disease Oriented Problem List (1) Acute kidney injury superimposed on chronic kidney disease (2) COPD (chronic obstructive pulmonary disease) (3) Obstructive sleep apnea on CPAP (4) Atrial fibrillation (5) Hypothyroid (6) History of permanent cardiac pacemaker placement (7) History of coronary artery bypass graft (8) Acute on chronic systolic CHF (congestive heart failure), NYHA class 4 (9) Cardiomyopathy (10) Aortic stenosis (11) Mitral regurgitation (12) History of cirrhosis (13) Anemia (14) Hypotension Pertinent Non-Medical Issues: Psychosocial: Originally from [place]. 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 Spiritual:Worship Legal:Pt has been alert and oriented, however orientation, alertness fluctuates , likely secondary to his multiple medical conditions. Best supported in decision-making by his who would be appropriate legal proxy. Ethical issues impacting care: Important Contacts: Katie Calderon [phone] [facility] [phone] Prognosis: This patient was admitted to [facility] for acute inpatient rehabilitation on 01/08/18. He has had multiple hospitalizations this year for CHF, shortness of breath and edema. He has had acute on chronic renal failure. He has had worsening BUN and multiple chronic medical comorbidities including MALICK requiring CPAP, O2 dependent, liver cirrhosis, A. fib on chronic Coumadin, aortic stenosis. He would not be a good candidate for dialysis due to multiorgan issues. He has had hypotension. increasingly difficult to treat his heart failure secondary to renal failure, renal failure worsening secondary to cardiac status. His conditions will continue to worsen even with ongoing aggressive management. Appropriate for hospice for ES heart failure, if goals compatible. Code Status: Full Code Plan: Legal decision maker: Legal:Pt has been alert and oriented, however orientation , alertness fluctuates, likely secondary to his multiple medical conditions. Best supported in decision-making by his who would be appropriate legal proxy Goals: , son struggling to accept patient decline and deteriorating condition. They are not ready for a DNR. They have met with hospice to obtain more information they may want to enroll at some point though are not quite ready . They wish to continue discussions , and processing over the next day or so. CODE STATUS: full code. SYMPTOMS: --Dyspnea-poor activity tolerance. Dyspnea on any exertion. O2 dependent. MALICK uses CPAP at night. End-stage heart failure EF 20-25%. Underlying COPD. Last CXR 01/14=Probable mild CHF . On PRN nebulizers. If goals comfort oriented benefit from low dose PRN opiates, benzodiazepines for tachypnea, dyspnea. Will cont to have exacerbations of dyspnea/fluid overload 2/2 renal, cardiac pathology --Weakness/debility-patient with multiple hospitalizations during 2018 for CHF, recently discharged to [facility] and rehab for rehab, and then to [place] inpatient rehab from [facility]. He has very limited activity tolerance secondary to medical conditions which limited his ability to rehabilitate. He has impaired coordination and is requiring assistance with ADLs. Likely limited to minimal benefits from ongoing rehabilitation to deconditioning, multiple advanced disease processes. --Pain-has endorsed pain to bilateral lower extremities. +chronic edema, compression wraps. probably neuropathic component. On lyrica, + prn ultram, tylenol. Avoid use/ Cautious use of stronger prns /opiates due to neuro/resp status if goals aggressive. No apparent pain today during exam. If goals comfort oriented may benefit from PRN such as norco. Palliative care will continue to follow during hospital course as condition evolves, to assist patient/decision-maker with understanding of medical conditions, weighing benefits/burdens of treatment options, for clarification of goals of treatment. Additionally will assist with any symptoms of palliative concern Attestation Attestation: To help prompt me to consider important information that might be impacting today's encounter and assessment, information from prior notes written by myself or my colleagues may have been "brought forward" into today's note. My signature on this note, however, is an attestation that I personally performed the exam, history, and/or decision-making noted today, and, unless otherwise indicated, the interactions with patient, family, and staff as well as the review of records all occurred today. I also attest that the listed assessment and stated plan reflect my best clinical judgment today based on the combination of historical information, prior notes, and today's exam/ interactions. When time spent is documented, it refers only to time spent today by the signer, or if indicated, combined time spent today by collaborating physician/nurse practitioner.
[2018-01-14] MEDS: Cefepime Inj 500 MG in Sodium Chlor 0.9% Inj 100 ML IV.SIG SCH (13:00)
[2018-01-14] MEDS ORDERED: CEFEPIME IV.SIG SCH (17:00)
[2018-01-14] MEDS: Dextrose 10% in Water Inj 500 ML IV.CONT SCH (17:46)
--- NOTE | 2018-01-14 18:34 | P.CONNP ---
<Cheryl Valdivia - Last Filed: 01/14/18 18:15> History of Present Illness Service: Nephrology Consult date: 01/14/18 Requesting Physician: Brigido Moyer Reason for Consult: Acute on CKD Primary Care Provider: No Primary Care Physician History of Present Illness: This is a 77 y/o who was at [facility] following hospitalization for pneumonia , CHF exacerbation and hyperkalemia. Prior to admission at [facility], he was at [place] [facility], not doing well there, and therefore was admitted to [facility]. He has history of atrial fibrillation, CKD, CAD, s/p CABG. He has been admitted at least 3 times to [facility] in [facility] in the past 2 months. His EF is around 20%, and he has aortic stenosis. He has not been doing well for the past week. His mental status has waxed and waned. He is short of breath with increasing edema and worsening renal function. His has met with palliative care and has yet to make a decision. She informs me that the staff at rehab was uncomfortable given his recent decline and wanted him transferred to acute care. We were reconsulted. The patient is sleepy, minimally arouseable, not eating much. He is making urine. Creatinine was 2.45 at its best while at [facility] , gradually increased to 3.9, and is 3.75 today. His baseline is unknown. He has lower extremity edema, is on oxygen, and is on D51/2 NS @ 42 cc/hr Review of Systems unobtainable due to mental status PMFSH - History History Provided By: Family Member - Medical / Surgical Hx Neg / Unobtainable Medical Problems Denied: Unable to Obtain Surgical History: Unable to Obtain - Medical History Medical History: Medical History (Last Reviewed 01/09/18 @ 13:57 by LISA Rogers) A-fib AVM (arteriovenous malformation) of colon Anemia, iron deficiency Aortic stenosis CAD (coronary artery disease) CHF (congestive heart failure) CKD (chronic kidney disease) stage 3, GFR 30-59 ml/min Cardiac defibrillator in place Cardiomyopathy Chronic pain Edema due to congestive heart failure Fatigue Hyperkalemia Hyperlipemia Hypertension Hypotension Hypothyroid Kidney failure Kidney stones Liver cirrhosis Sleep apnea with use of continuous positive airway pressure (CPAP) Tricuspid regurgitation Venous thromboembolism - Surgical History Surgical History: Surgical History (Last Reviewed 01/09/18 @ 13:57 by LISA Rogers) History of cholecystectomy History of heart artery stent Hx of CABG - Family History Family History: Family History (Last Reviewed 01/12/18 @ 16:34 by LISA Kwong) Other Family history non-contributory - Tobacco History Second Hand Smoke Exposure: No Tobacco Use In Past 30 Days: No Smoking Status: Never smoker - Alcohol History How Often Do You Have a Drink Containing Alcohol: Never - Substance Use History Substance History: No History of Abuse - Travel History History of Recent Travel: No Medications and Allergies Allergies Allergy/AdvReac Type Severity Reaction Status Date / Time levofloxacin [From Levaquin] Allergy Intermediate Muscle Pain Verified 01/08/18 15:37 prednisone Allergy Intermediate Itching Verified 01/08/18 15:37 Home Medications Medication Instructions Recorded Confirmed Type ascorbic acid (vitamin C) [Vitamin 500 mg PO DAILY 01/02/18 01/08/18 History C] aspirin 81 mg PO DAILY 01/02/18 01/08/18 History carvedilol 3.125 mg PO BID 01/02/18 01/08/18 History cetirizine 10 mg PO DAILY 01/02/18 01/08/18 History cholecalciferol (vitamin D3) 1,000 unit PO DAILY 01/02/18 01/08/18 History dronedarone [Multaq] 400 mg PO BID 01/02/18 01/08/18 History duloxetine 30 mg PO BID 01/02/18 01/08/18 History ferrous sulfate 325 mg PO DAILY 01/02/18 01/08/18 History levothyroxine 88 mcg PO DAILY 01/02/18 01/08/18 History magnesium oxide 500 mg PO DAILY 01/02/18 01/08/18 History omeprazole 20 mg PO DAILY 01/02/18 01/08/18 History pravastatin 40 mg PO DAILY 01/02/18 01/08/18 History ropinirole 1 mg PO HS 01/02/18 01/08/18 History midodrine 5 mg PO BID 01/08/18 01/08/18 History spironolactone [Aldactone] 25 mg PO DAILY 01/08/18 01/08/18 History Active Medications: Active Medications Acetaminophen (Tylenol Liq) 650 mg PO Q6H PRN PRN Reason: FEVER Al Hydroxide/Mg Hydroxide (Milk Of Magnesia Liq) 30 ml PO Q12H PRN PRN Reason: Mild Constipation Albuterol (Duoneb Neb ([facility])) 1 ampul NEB Q4HR NEB [facility] Last Admin: 01/14/18 15:14 Dose: 1 ampul Ascorbic Acid (Vitamin C) 500 mg PO DAILY [facility] Aspirin (Aspirin Chew) 81 mg PO DAILY [facility] Bisacodyl (Dulcolax Supp) 10 mg RECTAL DAILY PRN PRN Reason: SEVERE CONSITIPATION Bumetanide (Bumex Inj) 2 mg IV.PUSH TID [facility] Last Admin: 01/14/18 17:45 Dose: 2 mg Cetirizine HCl (Zyrtec) 10 mg PO DAILY [facility] Chlorhexidine Gluconate (Chlorhexidine 2% Cloth) 3 pack TOPICAL DAILY@0400 [facility] Stop: 01/19/18 03:59 Last Admin: 01/14/18 03:49 Dose: 3 pack Chlorhexidine Gluconate (Chlorhexidine 2% Cloth) 3 pack TOPICAL DAILY@0400 PRN PRN Reason: Extra cloth needed Stop: 01/19/18 03:59 Dextrose (D50w Vial) 50 ml IV.PUSH UNSCH PRN PRN Reason: PER HYPOGLYCEMIA PROTOCOL Dronedarone (Multaq) 400 mg PO BID [facility] Duloxetine HCl (Cymbalta) 30 mg PO BID [facility] Ferrous Sulfate (Ferosul) 325 mg PO DAILY [facility] Last Admin: 01/14/18 09:41 Dose: 325 mg Glucagon (Glucagon Inj) 1 mg OTHER UNSCH PRN PRN Reason: for Hypoglycemia Protocol Cefepime HCl 500 mg/ Sodium (Chloride) 100 mls @ 200 mls/hr IV.SIG Q24H [facility] Last Infusion: 01/14/18 14:00 Dose: Infused Dextrose (D10w Inj) 500 mls @ 15 mls/hr IV.CONT .Q24H [facility] Last Admin: 01/14/18 17:46 Dose: 15 mls/hr Insulin Human Regular (Novolin R Correctional Sugar Inj) 0 units SQ Q4HR [facility]; Protocol Last Admin: 01/14/18 17:13 Dose: Not Given Lactulose (Lactulose Liq) 30 ml PO DAILY PRN PRN Reason: SEVERE CONSITIPATION Lactulose (Lactulose Liq) 15 ml PO BID [facility] Last Admin: 01/14/18 09:40 Dose: 15 ml Levothyroxine Sodium (Synthroid) 88 mcg PO DAILY@0600 [facility] Midodrine (Proamatine) 5 mg PO BID@0900,1800 [facility] Last Admin: 01/14/18 17:45 Dose: 5 mg Pantoprazole Sodium (Protonix) 40 mg PO DAILY [facility] Patient Medication Teaching (Coumadin Booklet) 1 each OTHER ONCE ONE Stop: 01/15/18 16:01 Ropinirole HCl (Requip) 1 mg PO [facility] Senna/Docusate Sodium (Kareen-Colace) 1 tab PO BID [facility] Last Admin: 01/14/18 09:41 Dose: Not Given Sennosides (Senokot) 17.2 mg PO Q12H PRN PRN Reason: Moderate Constipation Vitamin D (Vitamin D3) 1,000 unit PO DAILY [facility] Warfarin Sodium (Coumadin) 1 mg PO MoWeFr@1600 [facility] Exam Vital signs: Vital Signs 01/13/18 20:00 01/13/18 20:09 01/13/18 23:47 Temperature 97.9 F Pulse Rate 84 74 73 Respiratory Rate 15 17 24 Blood Pressure 112/79 Pulse Oximetry 95 97 01/13/18 23:49 01/14/18 00:00 01/14/18 04:00 Temperature 97.9 F 97.8 F Pulse Rate 71 69 Respiratory Rate 22 22 Blood Pressure 109/71 105/66 Pulse Oximetry 94 L 96 96 01/14/18 04:13 01/14/18 08:00 01/14/18 08:18 Temperature 97.5 F L Pulse Rate 70 69 70 Respiratory Rate 25 H 20 13 Blood Pressure 112/73 Pulse Oximetry 96 98 96 01/14/18 11:21 01/14/18 12:00 01/14/18 15:15 Temperature 98.3 F Pulse Rate 79 86 104 H Respiratory Rate 18 20 26 H Blood Pressure 101/74 Pulse Oximetry 92 L 01/14/18 16:00 Temperature 98.7 F Pulse Rate 119 H Respiratory Rate 28 H Blood Pressure 102/75 Pulse Oximetry 92 L Intake & Output 01/13/18 01/14/18 01/14/18 18:59 06:59 18:59 Intake Total 100 / 100 352 / 352 Output Total 1400 / 1400 Balance -1300 / -1300 352 / 352 Weight 123 kg Intake: IV 100 / 100 352 / 352 D5W/Normal Saline Inj 1,000 ML 252 / 252 @ 42 mls/hr IV.CONT .[id number] [facility] Rx#:[id number] Maxipime Inj 500 MG In NS Inj 100 / 100 100 ML @ 200 mls/hr IV.SIG Q24H [facility] Rx#:[id number] Rocephin Inj 1,000 MG In NS Inj 100 / 100 100 ML @ 200 mls/hr IV.SIG Q24H [facility] Rx#:[id number] Oral 0 / 0 Output: Urine 1400 / 1400 Other: Date of Last Bowel Movement 01/13/18 01/13/18 # Bowel Movements 0 Weight On Admission 124.1 kg - Constitutional chronically ill appearing, somnolent - Routine HEENT Exam Head: Present: normocephalic - Routine Neck Exam Present: supple, full ROM - Routine Respiratory Exam Present: rales. Absent: accessory muscle use - Routine Cardiovascular Exam Present: S1, S2, murmur - Routine Abdominal Exam Present: soft, normoactive bowel sounds - Routine Extremities Exam Present: edema, pulses intact - Routine Skin Exam Present: intact, warm Results - Lab Results 01/14/18 03:19 01/14/18 03:19 Most recent lab results Calcium 8.7 mg/dL (8.5-10.1) 01/14/18 03:19 - Image Kidney/bladder ultrasound: other (not required ) Assessment and Plan - Assessment (1) Acute kidney injury superimposed on chronic kidney disease Code(s): N17.9 - Acute kidney failure, unspecified; N18.9 - Chronic kidney disease, unspecified Status: Acute Onset Date: ~12/21/17 Plan: He has underlying CKD 3-4. It is unclear what his true baseline is. His renal function overall is poor. 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 He has lower extremity edema. Clinically appears to have volume overload. Start Bumex 2 mg IV Q8H. Stop Lasix, continue spironolactone. Stop IVF, start D10@15 ml/hr for carbohydrate source. Overall his prognosis is guarded to poor, D/W . He most likely will not tolerate dialysis given heart failure. They ( and older child) are considering converting to comfort focused care moving forward if he continues to decline. Repeat labs daily Monitor urine output. Avoid nephrotoxic agents. (2) Thrombocytopenia Code(s): D69.6 - Thrombocytopenia, unspecified Status: Chronic Plan: Possibly due to liver disease. Stable, monitor. (3) Acute on chronic systolic CHF (congestive heart failure), NYHA class 4 Code(s): I50.23 - Acute on chronic systolic (congestive) heart failure Status : Acute Onset Date: ~12/21/17 Plan: Ischemic cardiomyopathy with EF of 20-25%. Continue diuretics. See above. (4) Atrial fibrillation Code(s): I48.91 - Unspecified atrial fibrillation Status: Chronic Plan: Rate controlled. On dose adjusted Coumadin. INR therapeutic currently. (5) History of cirrhosis Code(s): Z87.19 - Personal history of other diseases of the digestive system Status: Acute Plan: Etiology is unclear. (6) Anemia Code(s): D64.9 - Anemia, unspecified Status: Acute Plan: Normocytic anemia. Hb stable. Monitor for now. <Alvaro Preston - Last Filed: 01/15/18 14:58> History of Present Illness Primary Care Provider: No Primary Care Physician [facility] - Medical History Medical History: Medical History (Last Reviewed 01/09/18 @ 13:57 by LISA Rogers) A-fib AVM (arteriovenous malformation) of colon Anemia, iron deficiency Aortic stenosis CAD (coronary artery disease) CHF (congestive heart failure) CKD (chronic kidney disease) stage 3, GFR 30-59 ml/min Cardiac defibrillator in place Cardiomyopathy Chronic pain Edema due to congestive heart failure Fatigue Hyperkalemia Hyperlipemia Hypertension Hypotension Hypothyroid Kidney failure Kidney stones Liver cirrhosis Sleep apnea with use of continuous positive airway pressure (CPAP) Tricuspid regurgitation Venous thromboembolism - Surgical History Surgical History: Surgical History (Last Reviewed 01/09/18 @ 13:57 by LISA Rogers) History of cholecystectomy History of heart artery stent Hx of CABG - Family History Family History: Family History (Last Reviewed 01/12/18 @ 16:34 by LISA Kwong) Other Family history non-contributory Medications and Allergies Active Medications: Active Medications Acetaminophen (Tylenol Liq) 650 mg PO Q6H PRN PRN Reason: FEVER Al Hydroxide/Mg Hydroxide (Milk Of Magnesia Liq) 30 ml PO Q12H PRN PRN Reason: Mild Constipation Albuterol (Duoneb Neb ([facility])) 1 ampul NEB Q4HR NEB [facility] Last Admin: 01/15/18 11:41 Dose: 1 ampul Ascorbic Acid (Vitamin C) 500 mg PO DAILY [facility] Last Admin: 01/15/18 08:07 Dose: 500 mg Aspirin (Aspirin Chew) 81 mg PO DAILY [facility] Last Admin: 01/15/18 08:08 Dose: 81 mg Bisacodyl (Dulcolax Supp) 10 mg RECTAL DAILY PRN PRN Reason: SEVERE CONSITIPATION Bumetanide (Bumex Inj) 2 mg IV.PUSH TID [facility] Last Admin: 01/15/18 14:02 Dose: 2 mg Cetirizine HCl (Zyrtec) 10 mg PO DAILY [facility] Last Admin: 01/15/18 08:07 Dose: 10 mg Chlorhexidine Gluconate (Chlorhexidine 2% Cloth) 3 pack TOPICAL DAILY@0400 [facility] Stop: 01/19/18 03:59 Last Admin: 01/15/18 03:51 Dose: 3 pack Chlorhexidine Gluconate (Chlorhexidine 2% Cloth) 3 pack TOPICAL DAILY@0400 PRN PRN Reason: Extra cloth needed Stop: 01/19/18 03:59 Dextrose (D50w Vial) 50 ml IV.PUSH UNSCH PRN PRN Reason: PER HYPOGLYCEMIA PROTOCOL Dronedarone (Multaq) 400 mg PO BID [facility] Last Admin: 01/15/18 08:07 Dose: 400 mg Duloxetine HCl (Cymbalta) 30 mg PO BID [facility] Last Admin: 01/15/18 08:07 Dose: 30 mg Ferrous Sulfate (Ferosul) 325 mg PO DAILY [facility] Last Admin: 01/15/18 08:07 Dose: 325 mg Glucagon (Glucagon Inj) 1 mg OTHER UNSCH PRN PRN Reason: for Hypoglycemia Protocol Cefepime HCl 500 mg/ Sodium (Chloride) 100 mls @ 200 mls/hr IV.SIG Q24H [facility] Last Admin: 01/15/18 14:02 Dose: 150 mls/hr Dextrose (D10w Inj) 500 mls @ 10 mls/hr IV.CONT .Q24H [facility] Last Admin: 01/14/18 17:46 Dose: 15 mls/hr Insulin Human Regular (Novolin R Correctional Sugar Inj) 0 units SQ Q4HR [facility]; Protocol Last Admin: 01/15/18 12:51 Dose: Not Given Lactulose (Lactulose Liq) 30 ml PO DAILY PRN PRN Reason: SEVERE CONSITIPATION Lactulose (Lactulose Liq) 15 ml PO BID [facility] Last Admin: 01/15/18 08:06 Dose: 15 ml Levothyroxine Sodium (Synthroid) 88 mcg PO DAILY@0600 [facility] Last Admin: 01/15/18 05:56 Dose: 88 mcg Midodrine (Proamatine) 5 mg PO BID@0900,1800 [facility] Last Admin: 01/15/18 08:15 Dose: 5 mg Pantoprazole Sodium (Protonix) 40 mg PO DAILY [facility] Last Admin: 01/15/18 08:08 Dose: 40 mg Patient Medication Teaching (Coumadin Booklet) 1 each OTHER ONCE ONE Stop: 01/15/18 16:01 Pharmacy Profile Note (Coumadin Consult Pharmacy) 1 each OTHER UNSCH [facility] Ropinirole HCl (Requip) 1 mg PO [facility] Last Admin: 01/14/18 20:47 Dose: 1 mg Senna/Docusate Sodium (Kareen-Colace) 1 tab PO BID [facility] Last Admin: 01/15/18 08:14 Dose: 1 tab Sennosides (Senokot) 17.2 mg PO Q12H PRN PRN Reason: Moderate Constipation Vitamin D (Vitamin D3) 1,000 unit PO DAILY [facility] Last Admin: 01/15/18 08:08 Dose: 1,000 unit Warfarin Sodium (Coumadin) 1 mg PO MoWeFr@1600 [facility] Exam Vital signs: Vital Signs 01/14/18 15:15 01/14/18 16:00 01/14/18 20:00 Temperature 98.7 F 99 F Pulse Rate 104 H 119 H 102 H Respiratory Rate 26 H 28 H 29 H Blood Pressure 102/75 120/81 Pulse Oximetry 92 L 97 01/14/18 20:11 01/14/18 23:19 01/15/18 00:00 Temperature 98.2 F Pulse Rate 100 H 100 H 93 H Respiratory Rate 20 18 16 Blood Pressure 107/75 Pulse Oximetry 97 92 L 01/15/18 03:53 01/15/18 04:00 01/15/18 08:00 Temperature 98.7 F 98.3 F Pulse Rate 83 84 75 Respiratory Rate 20 18 43 H Blood Pressure 128/85 106/74 Pulse Oximetry 94 L 95 01/15/18 09:03 01/15/18 11:44 01/15/18 12:00 Temperature 98 F Pulse Rate 76 100 H 103 H Respiratory Rate 19 25 H 22 Blood Pressure 89/74 L Pulse Oximetry 96 97 Intake & Output 01/14/18 01/15/18 01/15/18 18:59 06:59 18:59 Intake Total 352 / 352 50 / 50 Output Total 800 / 800 Balance -448 / -448 50 / 50 Weight 118.5 kg Intake: IV 352 / 352 D5W/Normal Saline Inj 1,000 ML 252 / 252 @ 42 mls/hr IV.CONT .[id number] [facility] Rx#:[id number] Maxipime Inj 500 MG In NS Inj 100 / 100 100 ML @ 200 mls/hr IV.SIG Q24H [facility] Rx#:[id number] Oral 0 / 0 50 / 50 Output: Urine 800 / 800 Other: # Voids 3 # Incontinent Voids 4 Date of Last Bowel Movement 01/13/18 01/14/18 01/13/18 # Bowel Movements 1 0 Results - Lab Results 01/15/18 03:50 01/15/18 03:50 Most recent lab results Calcium 9.0 mg/dL (8.5-10.1) 01/15/18 03:50 Phosphorus 3.8 mg/dL (2.5-4.9) 01/15/18 03:50 Magnesium 2.0 mg/dL (1.5-2.5) 01/15/18 03:50 Assessment and Plan - Assessment (1) Acute kidney injury superimposed on chronic kidney disease Code(s): N17.9 - Acute kidney failure, unspecified; N18.9 - Chronic kidney disease, unspecified Status: Acute Onset Date: ~12/21/17 (2) Acute on chronic systolic CHF (congestive heart failure), NYHA class 4 Code(s): I50.23 - Acute on chronic systolic (congestive) heart failure Status : Acute Onset Date: ~12/21/17 (3) Thrombocytopenia Code(s): D69.6 - Thrombocytopenia, unspecified Status: Chronic (4) Atrial fibrillation Code(s): I48.91 - Unspecified atrial fibrillation Status: Chronic (5) History of cirrhosis Code(s): Z87.19 - Personal history of other diseases of the digestive system Status: Acute (6) Anemia Code(s): D64.9 - Anemia, unspecified Status: Acute - Attending Attestation patient was seen and examined. Agree with above assessment and plan. Patient's prognosis is very poor. Continue diuresis. Suggest hospice and comfort measures. Will not tolerate dialysis/renal replacement therapy.
[2018-01-14 19:19] LABS: Bilirubin,Urine Negative (Negative); Clarity,Urine Clear (Clear); Color,Urine Yellow (Yellw/Straw); Glucose,Urine (UA) Negative (Negative); Leukocyte Esterase,Urine Negative (Negative); Nitrite,Urine Negative (Negative); Specific Gravity,Urine 1.006 (1.002-1.035)
[2018-01-15] MEDS: Insulin NovoLIN Regular Correctional Sugar Inj SQ SCH ×6 (00:22→21:29)
[2018-01-15] MEDS: Chlorhexidine Gluconate 2% 1 Pack (2 Cloths) TOPICAL SCH (03:51)
[2018-01-15 04:38] LABS: Baso % (Auto) 0.8 % (0.0-2.0); Eos # (Auto) 0.3 th/mm3 (0.0-0.4); Eos % (Auto) 4.3 % (0.0-4.0); Hematocrit 39.6 % (39.0-51.0); Lymph # (Auto) 1.2 th/mm3 (1.0-4.8); Lymph % (Auto) 18.7 % (9.0-44.0); Mean Corpuscular Hemoglobin 29.1 pg (27.0-34.0); Mean Corpuscular Volume 88.3 fL (80.0-100.0); Mean Platelet Volume 10.3 fL (7.0-11.0); Mono # (Auto) 0.7 th/mm3 (0.0-0.9); Mono % (Auto) 10.7 % (0.0-8.0); Neut % (Auto) 65.5 % (16.0-70.0); Platelet Count 117 th/mm3 (150-450); Red Blood Count 4.48 mil/mm3 (4.50-5.90); Red Cell Distribution Width 17.7 % (11.6-17.2); White Blood Count 6.1 th/mm3 (4.0-11.0)
[2018-01-15 04:44] LABS: INR 2.4 Ratio; Prothrombin Time 24.3 sec (9.8-11.6)
[2018-01-15 05:02] LABS: Anion Gap 13 meq/L (5-15); Aspartate Aminotransferase 23 U/L (15-37); Blood Urea Nitrogen 41 mg/dL (7-18); Carbon Dioxide 25.2 meq/L (21.0-32.0); Chloride 97 meq/L (98-107); Glomerular Filtration Rate 19 mL/min (>89); Glucose,Random 83 mg/dL (74-106); Potassium 3.5 meq/L (3.5-5.1); Sodium 135 meq/L (136-145)
[2018-01-15 05:03] LABS: Alanine Aminotransferase 26 U/L (12-78); Phosphorus 3.8 mg/dL (2.5-4.9)
[2018-01-15 05:13] LABS: Alkaline Phosphatase 95 U/L (45-117); Total Protein 6.1 g/dL (6.4-8.2)
[2018-01-15] MEDS: Levothyroxine 88 MCG Tablet PO SCH (05:56)
[2018-01-15] MEDS: Ascorbic Acid 500 MG Tablet PO SCH (08:07)
[2018-01-15] MEDS: Ferrous Sulfate 325 MG Tablet PO SCH (08:07)
--- NOTE | 2018-01-15 08:13 | P.PNIM ---
Subjective Interval history: f/u; renal insufficiency/ hypoglycemia on CPAP. awake and alert with no reported pain. no fever. d/w the RN and no acute issues over night. Physical Exam Vital signs: Vital Signs 01/14/18 08:18 01/14/18 11:21 01/14/18 12:00 Temperature 98.3 F Pulse Rate 70 79 86 Respiratory Rate 13 18 20 Blood Pressure 101/74 Pulse Oximetry 96 92 L 01/14/18 15:15 01/14/18 16:00 01/14/18 20:00 Temperature 98.7 F 99 F Pulse Rate 104 H 119 H 102 H Respiratory Rate 26 H 28 H 29 H Blood Pressure 102/75 120/81 Pulse Oximetry 92 L 97 01/14/18 20:11 01/14/18 23:19 01/15/18 00:00 Temperature 98.2 F Pulse Rate 100 H 100 H 93 H Respiratory Rate 20 18 16 Blood Pressure 107/75 Pulse Oximetry 97 92 L 01/15/18 03:53 01/15/18 04:00 Temperature 98.7 F Pulse Rate 83 84 Respiratory Rate 20 18 Blood Pressure 128/85 Pulse Oximetry 94 L Intake & Output 01/14/18 01/15/18 01/15/18 18:59 06:59 18:59 Intake Total 352 / 352 50 / 50 Output Total 800 / 800 Balance -448 / -448 50 / 50 Weight 118.5 kg Intake: IV 352 / 352 D5W/Normal Saline Inj 1,000 ML 252 / 252 @ 42 mls/hr IV.CONT .[id number] RADHA Rx#:[id number] Maxipime Inj 500 MG In NS Inj 100 / 100 100 ML @ 200 mls/hr IV.SIG Q24H RADHA Rx#:[id number] Oral 0 / 0 50 / 50 Output: Urine 800 / 800 Other: # Voids 3 # Incontinent Voids 4 Date of Last Bowel Movement 01/13/18 01/14/18 # Bowel Movements 1 0 - Constitutional no acute distress - Routine Respiratory Exam Present: CTA bilaterally - Routine Cardiovascular Exam Present: RRR - Routine Abdominal Exam Present: soft - Routine Extremities Exam Comments: no pedal edema. - Routine Neurological Exam Present: alert Results - Labs CBC & Chem 7: 01/15/18 03:50 01/15/18 03:50 Laboratory Results - last 24 hr 01/14/18 01/14/18 01/14/18 08:32 09:11 09:46 WBC RBC Hgb Hct MCV MCH MCHC RDW Plt Count MPV Neut % (Auto) Lymph % (Auto) Letcher % (Auto) Eos % (Auto) Baso % (Auto) Neut # (Auto) Lymph # (Auto) Letcher # (Auto) Eos # (Auto) Baso # (Auto) WBC Differential Differential Comment PT INR Sodium Potassium Chloride Carbon Dioxide Anion Gap BUN Creatinine Estimated GFR POC Glucose 61 L 69 75 Random Glucose Calcium Phosphorus Magnesium Total Bilirubin AST ALT Alkaline Phosphatase Total Protein Albumin TSH Cortisol Urine Color Urine Clarity Urine pH Ur Specific Kamas Urine Protein Urine Glucose (UA) Urine Ketones Urine Occult Blood Urine Nitrate Urine Bilirubin Urine Urobilinogen Ur Leukocyte Esterase Urine WBC Micro UA Comment Urine Culture Comments 01/14/18 01/14/18 01/14/18 12:03 16:17 18:00 WBC RBC Hgb Hct MCV MCH MCHC RDW Plt Count MPV Neut % (Auto) Lymph % (Auto) Letcher % (Auto) Eos % (Auto) Baso % (Auto) Neut # (Auto) Lymph # (Auto) Letcher # (Auto) Eos # (Auto) Baso # (Auto) WBC Differential Differential Comment PT INR Sodium Potassium Chloride Carbon Dioxide Anion Gap BUN Creatinine Estimated GFR POC Glucose 103 108 Random Glucose Calcium Phosphorus Magnesium Total Bilirubin AST ALT Alkaline Phosphatase Total Protein Albumin TSH Cortisol Urine Color Yellow Urine Clarity Clear Urine pH 5.0 Ur Specific Kamas 1.006 Urine Protein Negative Urine Glucose (UA) Negative Urine Ketones Negative Urine Occult Blood Negative Urine Nitrate Negative Urine Bilirubin Negative Urine Urobilinogen Less than 2 Ur Leukocyte Esterase Negative Urine WBC Less than 1 Micro UA Comment Cath-culture not ind Urine Culture Comments Cath-cult not ind 01/14/18 01/14/18 01/15/18 20:44 23:28 03:50 WBC 6.1 RBC 4.48 L Hgb 13.0 Hct 39.6 MCV 88.3 MCH 29.1 MCHC 33.0 RDW 17.7 H Plt Count 117 L MPV 10.3 Neut % (Auto) 65.5 Lymph % (Auto) 18.7 Letcher % (Auto) 10.7 H Eos % (Auto) 4.3 H Baso % (Auto) 0.8 Neut # (Auto) 4.0 Lymph # (Auto) 1.2 Letcher # (Auto) 0.7 Eos # (Auto) 0.3 Baso # (Auto) 0.0 WBC Differential . Differential Comment Auto diff final PT INR Sodium Potassium Chloride Carbon Dioxide Anion Gap BUN Creatinine Estimated GFR POC Glucose 87 110 Random Glucose Calcium Phosphorus Magnesium Total Bilirubin AST ALT Alkaline Phosphatase Total Protein Albumin TSH Cortisol Urine Color Urine Clarity Urine pH Ur Specific Kamas Urine Protein Urine Glucose (UA) Urine Ketones Urine Occult Blood Urine Nitrate Urine Bilirubin Urine Urobilinogen Ur Leukocyte Esterase Urine WBC Micro UA Comment Urine Culture Comments 01/15/18 01/15/18 01/15/18 03:50 03:50 03:50 WBC RBC Hgb Hct MCV MCH MCHC RDW Plt Count MPV Neut % (Auto) Lymph % (Auto) Letcher % (Auto) Eos % (Auto) Baso % (Auto) Neut # (Auto) Lymph # (Auto) Letcher # (Auto) Eos # (Auto) Baso # (Auto) WBC Differential Differential Comment PT 24.3 H INR 2.4 Sodium 135 L Potassium 3.5 Chloride 97 L Carbon Dioxide 25.2 Anion Gap 13 BUN 41 H Creatinine 3.24 H Estimated GFR 19 L POC Glucose Random Glucose 83 Calcium 9.0 Phosphorus 3.8 Magnesium 2.0 Total Bilirubin 1.6 H AST 23 ALT 26 Alkaline Phosphatase 95 Total Protein 6.1 L Albumin 3.0 L TSH 1.940 Cortisol 12.6 Urine Color Urine Clarity Urine pH Ur Specific Kamas Urine Protein Urine Glucose (UA) Urine Ketones Urine Occult Blood Urine Nitrate Urine Bilirubin Urine Urobilinogen Ur Leukocyte Esterase Urine WBC Micro UA Comment Urine Culture Comments 01/15/18 03:50 WBC RBC Hgb Hct MCV MCH MCHC RDW Plt Count MPV Neut % (Auto) Lymph % (Auto) Letcher % (Auto) Eos % (Auto) Baso % (Auto) Neut # (Auto) Lymph # (Auto) Letcher # (Auto) Eos # (Auto) Baso # (Auto) WBC Differential Differential Comment PT INR Sodium Potassium Chloride Carbon Dioxide Anion Gap BUN Creatinine Estimated GFR POC Glucose 89 Random Glucose Calcium Phosphorus Magnesium Total Bilirubin AST ALT Alkaline Phosphatase Total Protein Albumin TSH Cortisol Urine Color Urine Clarity Urine pH Ur Specific Kamas Urine Protein Urine Glucose (UA) Urine Ketones Urine Occult Blood Urine Nitrate Urine Bilirubin Urine Urobilinogen Ur Leukocyte Esterase Urine WBC Micro UA Comment Urine Culture Comments Microbiology 01/13/18 18:25 Blood - Peripheral Aerobic Blood Culture - Preliminary No growth in 1 day 01/13/18 18:25 Blood - Peripheral Anaerobic Blood Culture - Preliminary No growth in 1 day 01/13/18 18:29 Blood - Peripheral Aerobic Blood Culture - Preliminary No growth in 1 day 01/13/18 18:29 Blood - Peripheral Anaerobic Blood Culture - Preliminary No growth in 1 day Assessment and Plan - Plan Depressive disorder NOS Allergic rhinitis Acetaminophen 650 p.o. every 6 hours as needed fever Continue duloxetine 30 mg twice daily/home medication for depression Continue cetirizine 10 mg daily for allergic rhinitis Resuming ropinirole 1 mg daily Atrial fibrillation rate controlled Severe aortic stenosis chronic systolic heart failure ejection fraction 20-25% History of biventricular ICD Essential hypertension Hyperlipidemia Coronary artery disease status post stent Continue aspirin 81 mg daily/home medication Holding carvedilol 3.125 mg p.o. twice daily in light of hypotension Resumed dronedarone 400 mg twice daily for atrial fibrillation. Resumed Midodrine 5 mg twice daily for hypotension on Bumex IV Holding pravastatin 40 mg a day for distal edema. Resume clinically indicated Acute respiratory insufficiency Obstructive sleep apnea Nasal cannula to maintain saturations greater than equal 92% Incentive spirometry while awake Albuterol/ipratropium aerosols every 4 hours with albuterol aerosols every 2 hours as needed for dyspnea CPAP as needed Gastroesophageal reflux disease Elevated total bilirubin Hypoalbuminemia History of liver cirrhosis biopsy-proven Renal diet Currently on pantoprazole 40 mg daily./On omeprazole 20 mg at home Docusate sodium/senna 1 tablet twice daily for bowel regimen Hypothyroidism Relative hypoglycemia taper down D10 gradually and continue to monitor blood sugar. Continue levothyroxine at 88 mcg daily. Check TSH in a.m. Acute kidney injury in setting of chronic kidney disease stage IIIa avoid nephrotoxic agents- monitor renal function- nephrology following. Chronic warfarin use 1.5 mg daily. Normocytic anemia Thrombocytopenia CBC stable. No indication for transfusion of blood products at this time. Resumed warfarin at 1 mg q. Thursday. - will consult pharmacy for coumadin dosing. Urinary tract infection E faecalis currently on cefepime will deescalate the antibiotic regimen within the next 24 hrs if stable. repeated UA pending. Generalized debility PT evaluate and treat FEN Replace electrolytes as clinically indicated Prophylaxis -GI- Pantoprazole- - - DVT SCDs heparin subcu transfer to floor. Discharge Planning: palliative care following; family considering hospice.
[2018-01-15] MEDS: Senna/Docusate Sodium 8.6/50 MG Tablet PO SCH ×2 (08:14→21:30)
[2018-01-15] MEDS ORDERED: Warfarin Consult Pharmacy OTHER SCH (08:30)
[2018-01-15] MEDS ORDERED: Ferrous Sulfate 325 MG Tablet PO SCH (09:00)
[2018-01-15] MEDS ORDERED: CEFEPIME IV.SIG SCH (09:00)
[2018-01-15] MEDS: Cefepime Inj 500 MG in Sodium Chlor 0.9% Inj 100 ML IV.SIG SCH (14:02)
--- NOTE | 2018-01-15 14:19 | P.PNNP ---
Subjective Interval history: More awake today. Attempting to climb out of bed. Renal function slightly better. Still requiring D10. Heart rate 120-130s. <Cheryl Valdivia - Last Filed: 01/15/18 14:15> Physical Exam Vital signs: Vital Signs 01/14/18 15:15 01/14/18 16:00 01/14/18 20:00 Temperature 98.7 F 99 F Pulse Rate 104 H 119 H 102 H Respiratory Rate 26 H 28 H 29 H Blood Pressure 102/75 120/81 Pulse Oximetry 92 L 97 01/14/18 20:11 01/14/18 23:19 01/15/18 00:00 Temperature 98.2 F Pulse Rate 100 H 100 H 93 H Respiratory Rate 20 18 16 Blood Pressure 107/75 Pulse Oximetry 97 92 L 01/15/18 03:53 01/15/18 04:00 01/15/18 08:00 Temperature 98.7 F 98.3 F Pulse Rate 83 84 75 Respiratory Rate 20 18 43 H Blood Pressure 128/85 106/74 Pulse Oximetry 94 L 95 01/15/18 09:03 01/15/18 11:44 01/15/18 12:00 Temperature 98 F Pulse Rate 76 100 H 103 H Respiratory Rate 19 25 H 22 Blood Pressure 89/74 L Pulse Oximetry 96 97 Intake & Output 01/14/18 01/15/18 01/15/18 18:59 06:59 18:59 Intake Total 352 / 352 50 / 50 Output Total 800 / 800 Balance -448 / -448 50 / 50 Weight 118.5 kg Intake: IV 352 / 352 D5W/Normal Saline Inj 1,000 ML 252 / 252 @ 42 mls/hr IV.CONT .[id number] RAD[facility] Rx#:[id number] Maxipime Inj 500 MG In NS Inj 100 / 100 100 ML @ 200 mls/hr IV.SIG Q24H RAD[facility] Rx#:[id number] Oral 0 / 0 50 / 50 Output: Urine 800 / 800 Other: # Voids 3 # Incontinent Voids 4 Date of Last Bowel Movement 01/13/18 01/14/18 01/13/18 # Bowel Movements 1 0 - Constitutional no acute distress, chronically ill appearing, disheveled, agitated - Routine HEENT Exam Head: Present: normocephalic - Routine Neck Exam Present: supple, full ROM, JVD - Routine Respiratory Exam Present: rales, distant breath sounds. Absent: accessory muscle use - Routine Cardiovascular Exam Present: S1, S2, tachycardia, irregular rhythm, irregularly irregular - Routine Abdominal Exam Present: soft, normoactive bowel sounds - Routine Extremities Exam Present: edema, pulses intact, tenderness - Routine Skin Exam Present: intact, dry, warm - Routine Neurological Exam Present: alert, moving all extremities - Detailed Neurological Exam: Coma Scale Eye Opening: Spontaneous Verbal Response: Confused Motor Response: Obey commands Kian Coma Scale Total: 14 - Routine Psychiatric Exam Present: normal affect, unable to assess <Cheryl Valdivia - Last Filed: 01/15/18 14:15> Vital signs: Vital Signs 01/14/18 15:15 01/14/18 16:00 01/14/18 20:00 Temperature 98.7 F 99 F Pulse Rate 104 H 119 H 102 H Respiratory Rate 26 H 28 H 29 H Blood Pressure 102/75 120/81 Pulse Oximetry 92 L 97 01/14/18 20:11 01/14/18 23:19 01/15/18 00:00 Temperature 98.2 F Pulse Rate 100 H 100 H 93 H Respiratory Rate 20 18 16 Blood Pressure 107/75 Pulse Oximetry 97 92 L 01/15/18 03:53 01/15/18 04:00 01/15/18 08:00 Temperature 98.7 F 98.3 F Pulse Rate 83 84 75 Respiratory Rate 20 18 43 H Blood Pressure 128/85 106/74 Pulse Oximetry 94 L 95 01/15/18 09:03 01/15/18 11:44 01/15/18 12:00 Temperature 98 F Pulse Rate 76 100 H 103 H Respiratory Rate 19 25 H 22 Blood Pressure 89/74 L Pulse Oximetry 96 97 Intake & Output 01/14/18 01/15/18 01/15/18 18:59 06:59 18:59 Intake Total 352 / 352 50 / 50 Output Total 800 / 800 Balance -448 / -448 50 / 50 Weight 118.5 kg Intake: IV 352 / 352 D5W/Normal Saline Inj 1,000 ML 252 / 252 @ 42 mls/hr IV.CONT .[id number] RADHA Rx#:[id number] Maxipime Inj 500 MG In NS Inj 100 / 100 100 ML @ 200 mls/hr IV.SIG Q24H RADHA Rx#:[id number] Oral 0 / 0 50 / 50 Output: Urine 800 / 800 Other: # Voids 3 # Incontinent Voids 4 Date of Last Bowel Movement 01/13/18 01/14/18 01/13/18 # Bowel Movements 1 0 <KaryRoseannAlvaro - Last Filed: 01/15/18 15:07> Assessment and Plan - Assessment (1) Acute kidney injury superimposed on chronic kidney disease Code(s): N17.9 - Acute kidney failure, unspecified; N18.9 - Chronic kidney disease, unspecified Status: Acute Onset Date: ~12/21/17 Plan: He has underlying CKD 3-4. It is unclear what his true baseline is. His renal function overall is poor, but today his creatinine is slightly better. Has cardiorenal type picture. Continue Bumex Q8H. Monitor output. He is non oliguric. Diuretics also include spironolactone. On D10@15 ml/hr as a carbohydrate source. Avoid other IVF. Repeat labs daily Monitor urine output. Avoid nephrotoxic agents. Overall his prognosis is guarded to poor, D/W . He most likely will not tolerate dialysis given heart failure. They ( and older child) are considering converting to comfort focused care moving forward if he continues to decline. (2) Acute on chronic systolic CHF (congestive heart failure), NYHA class 4 Code(s): I50.23 - Acute on chronic systolic (congestive) heart failure Status : Acute Onset Date: ~12/21/17 Plan: Ischemic cardiomyopathy with EF of 20-25%. Continue diuretics. See above. (3) Thrombocytopenia Code(s): D69.6 - Thrombocytopenia, unspecified Status: Chronic Plan: Possibly due to liver disease. Stable, monitor. (4) Atrial fibrillation Code(s): I48.91 - Unspecified atrial fibrillation Status: Chronic Plan: tachycardic today. On dose adjusted Coumadin. INR therapeutic currently. (5) History of cirrhosis Code(s): Z87.19 - Personal history of other diseases of the digestive system Status: Acute Plan: Etiology is unclear. (6) Anemia Code(s): D64.9 - Anemia, unspecified Status: Acute Plan: Normocytic anemia. Hb stable. Monitor for now. <Cheryl Valdivia - Last Filed: 01/15/18 14:15> - Assessment (1) Acute kidney injury superimposed on chronic kidney disease Code(s): N17.9 - Acute kidney failure, unspecified; N18.9 - Chronic kidney disease, unspecified Status: Acute Onset Date: ~12/21/17 (2) Acute on chronic systolic CHF (congestive heart failure), NYHA class 4 Code(s): I50.23 - Acute on chronic systolic (congestive) heart failure Status : Acute Onset Date: ~12/21/17 (3) Thrombocytopenia Code(s): D69.6 - Thrombocytopenia, unspecified Status: Chronic (4) Atrial fibrillation Code(s): I48.91 - Unspecified atrial fibrillation Status: Chronic (5) History of cirrhosis Code(s): Z87.19 - Personal history of other diseases of the digestive system Status: Acute (6) Anemia Code(s): D64.9 - Anemia, unspecified Status: Acute - Attending Attestation patient was seen and examined. Agree with above assessment and plan. Poor prognosis, but renal function is slightly better. <Alvaro Presotn - Last Filed: 01/15/18 15:07>
--- NOTE | 2018-01-15 15:14 | P.PNPAL ---
Reason for Visit Reason for visit: a. To assist with evaluation and management of symptoms including: dyspnea, weakness/debility b. To assist medical decision maker(s) with: better understanding of current medical conditions; weighing benefits/burdens of medical treatment options; making medical treatment decisions. Subjective Subjective/Interval History: Pt seen today to follow up on dyspnea, lethargy, goals w decision maker Stable in ICU. Some episodes ectopy, tachy reported per nursing. BC no growth x1 day. CBC stable/unremarkable. BUN 41, creatinine 3.24, slightly improved. GFR 19. Nephrology following. Urine output adequate. Eating about 50% per nurse. +having BMs. Transfer orders for regular med/surg room. D/w primary nurse. Reported met w hospice earlier and has elected to proceed with hospice, comfort measures, nursing indicates was not ready for DNR yet. Pt seen in room, grandson present. He is alert, partially oriented. Aware he is in [facility], though poor insight to ICU, conditions. He endorses feeling much better overall. Denies dyspnea. +cough some with resp tx. No GI complaints, indicates he tolerated breakfast well. +paced, tachy via bedside monitor, 110-120. Bp 85's/60s. following exam call to bharti guzman unable to leave VM. advise nursing to call me if returns and she has additional questions etc and I can return/update her. H&P from initial consultation yesterday 01/12/18 in [facility] setting: This pt was admitted to [facility] inpatient [facility] on 01/08/18. he was admitted from [facility] where he was following acute hospitalization at [facility]. She was admitted there for SOB, edema, CHF. She has apparently had several admissions during 2018 for acute CHF. She has known EF 20 -25% per ECHO 12/07/17, and has biventricular ICD. He has multiple chronic medical problems : MALICK on CPAP, liver cirrhosis, thrombocytopenia, afib on chronic Coumadin, hypertension, CAD, aortic stenosis, tricuspid regurg. He had some acute renal dysfunction during recent hospitalization, however improved at d/c to [facility] rehab. He is on chronic O2. * He is noted to have an ED presentation a few days prior to this on 01/02, in which his noted edema by being on Lasix and requested evaluation. He was noted at that time he presented a challenging management scenario due to fluid status, as well as cardiac status. Recommended for close outpatient monitoring at that time he was not treated with IV hydration or diuresis based on diagnostics. During rehab course he is receiving wraps to lower extremities to assist with edema and fluid mobilization. He is continued diuretics, monitoring of elevated renal functions. Chronic anemia noted. An of INR for chronic Coumadin therapy. Having some diarrhea, C. difficile negative. He is working with PT 60 minutes a day, 5 days per week, OT 60 minutes 5 days per week, and speech therapy 60 minutes 5 days per week. Hospitalist consulted to assist with medical management of his complex medical comorbidities. He is unable to tolerate Entresto due to hypotension. He is continued on diuretics. Nephrology consulted 01/10 for increasing renal functions. (bun 37-->40, creat 2.45-->2.72) Nephrology notes acute kidney failure though not clear what his true baseline is. Clinically appears to have volume overload. Ultrasound obtained. Continue diuretics discontinued lisinopril. Likely with cardiorenal syndrome. unclear if renal function will improve. Prognosis is guarded to poor. Abdominal ultrasound=1. Cirrhotic liver with small amount ascites.2. Trace bilateral pleural effusions, right greater than left 01/12 renal functioning worse BUN44/creat 3.10, nephrology notes cardiorenal syndrome. Will do poorly with dialysis due to multiorgan issues. Patient increasingly lethargic, ammonia levels pending. Nephrology apparently discussed hospice recommendation with patient . + UTI, on Augmentin. Ammonia = 54 Palliative care consulted to assist with clarification of goals of medical treatment. FOLLOW UP MEETING WITH FAMILY WEDS AM: Met with patient son, at length approximally 45 minutes discussion included the following: * Palliative care role, purpose, approach * Additional medical, psychosocial, and spiritual history * Patients general health, functional status, and cognitive changes in the months leading up to the current hospitalization-- details had an acute hospitalization in September of this year for pneumonia, fluid overload seemed to stabilize and recover and then days following that again had acute respiratory, fluid issues and "did not bounce back as well ", and since that time has been in and out of the hospital and rehab setting. Prior to that episode in September he lives at home was independent with ADLs and doing fairly well day-to-day. * family understanding of the current medical problems-review of diagnoses, diagnostics, current clinical assessment, limited treatment options * family understanding of prognosis--review cardiorenal is terminal due to limited ability to treat conditions * Patients goals of care as best understood from advance directives and/or conversations and/or values * Current medical treatment options and benefits/burdens of those options-very limited treatment options going forward for cardiorenal syndrome patient will be expected to require ICU course condition will be terminal at some point even with ongoing aggressive management. * Likely scenarios comparing ongoing aggressive care with a transition to `` comfort measures only//review of role, philosophy, services provided; symptom- based treatment versus curative treatment * CODE STATUS- they are struggling with possible DNR, request full code for now while they discuss as a family * Legal decision makers per [place] statutes- is proxy. she wishes to involve his children for support. * Questions answered to the best of my ability * Palliative care contact information provided and son are appropriately tearful at times . They are struggling to accept patient decline , they verbalize they have seen him "bounce back "from so many illnesses since his initial [place] in the . They verbalize if patient is expected to continue to decline and conditions are not reversible he would probably want to be home and comfortable for whatever time he has left. However they are struggling to make him a DNR, review with them that he is high risk for intubation and subsequent cardiac decline and that if he is intubated it would be very unlikely he would be able to be medically extubated and he would remain high risk for other further complications during that course. Review of hospice services they indicate ultimately he would probably want to go home with hospice services to be peaceful at end-of-life. They are open to meeting with hospice to gain more information though indicate they would not likely proceed with enrollment today they need more time to talk as a family and process. They indicate the patient never documented his wishes nor would he ever talk about or illness and what his wishes would be. Advance Directives Living Will: Never completed Health Care Surrogate: Never completed Durable Power of Bit Grinder: Never completed Objective Vital Signs: Vital Signs 01/14/18 15:15 01/14/18 16:00 01/14/18 20:00 Temperature 98.7 F 99 F Pulse Rate 104 H 119 H 102 H Respiratory Rate 26 H 28 H 29 H Blood Pressure 102/75 120/81 Pulse Oximetry 92 L 97 01/14/18 20:11 01/14/18 23:19 01/15/18 00:00 Temperature 98.2 F Pulse Rate 100 H 100 H 93 H Respiratory Rate 20 18 16 Blood Pressure 107/75 Pulse Oximetry 97 92 L 01/15/18 03:53 01/15/18 04:00 01/15/18 08:00 Temperature 98.7 F 98.3 F Pulse Rate 83 84 75 Respiratory Rate 20 18 43 H Blood Pressure 128/85 106/74 Pulse Oximetry 94 L 95 01/15/18 09:03 01/15/18 11:44 01/15/18 12:00 Temperature 98 F Pulse Rate 76 100 H 103 H Respiratory Rate 19 25 H 22 Blood Pressure 89/74 L Pulse Oximetry 96 97 Intake & Output 01/14/18 01/15/18 01/15/18 18:59 06:59 18:59 Intake Total 352 / 352 50 / 50 Output Total 800 / 800 Balance -448 / -448 50 / 50 Weight 118.5 kg Intake: IV 352 / 352 D5W/Normal Saline Inj 1,000 ML 252 / 252 @ 42 mls/hr IV.CONT .[id number] RADHA Rx#:[id number] Maxipime Inj 500 MG In NS Inj 100 / 100 100 ML @ 200 mls/hr IV.SIG Q24H RADHA Rx#:[id number] Oral 0 / 0 50 / 50 Output: Urine 800 / 800 Other: # Voids 3 # Incontinent Voids 4 Date of Last Bowel Movement 01/13/18 01/14/18 01/13/18 # Bowel Movements 1 0 Physical Exam: CONSTITUTIONAL/GENERAL: This is an obese elderly male, alert pleasant SKIN: No jaundice, rashes, or lesions. Ecchymoses left upper extremity. No wounds seen anteriorly. Skin warm and dry. SCDs LE, edema improved LE. HEAD: Atraumatic. Normocephalic. EYES: Pupils equal and round and reactive. Extraocular motions intact. No scleral icterus. No injection or drainage. Fundi not examined. ENT: Hard of hearing. Nose without bleeding or purulent drainage. Throat without visible erythema, exudates, masses, or lesions. CARDIOVASCULAR: regular, heart sounds distant.paced via bedside monitor, rate 115. No JVD. improved edema to lower extremity. pedal pulses palpable RESPIRATORY/CHEST: Symmetric, unlabored respirations. RR20. Clear , diminished GASTROINTESTINAL: Abdomen soft,obese, non-tender, nondistended. No palpable masses. No guarding. Bowel sounds normoactive. GENITOURINARY: Without palpable bladder distension. sol catheter, clear yellow urine MUSCULOSKELETAL: Extremities without clubbing, cyanosis. improved edema BLE. No joint tenderness or effusion noted. No calf tenderness. NEUROLOGICAL: Alert, Oriented to person,family, hospital. limited insight to conditions/ICU course. cooperative, follows commands. Moves all 4 extremities. PSYCHIATRIC: No obvious anxiety/depression. Diagnostic Tests Laboratory: Laboratory Results - last 72 hr 01/13/18 01/13/18 01/13/18 17:45 18:24 18:29 WBC 6.5 RBC 4.38 L Hgb 12.9 L Hct 38.7 L MCV 88.3 MCH 29.5 MCHC 33.4 RDW 18.2 H Plt Count 107 L MPV 11.1 H Prelim Diff (Auto) Slide review pending Neut % (Auto) 63.5 Lymph % (Auto) 20.7 [place] % (Auto) 11.0 H Eos % (Auto) 3.7 Baso % (Auto) 1.1 Neut # (Auto) 4.1 Lymph # (Auto) 1.3 [place] # (Auto) 0.7 Eos # (Auto) 0.2 Baso # (Auto) 0.1 WBC Differential . Diff Scan Auto diff confirmed Differential Comment . Platelet Estimate Low L Platelet Morphology Enlarged H Ovalocytes 1+ H PT INR Sodium Potassium Chloride Carbon Dioxide Anion Gap BUN Creatinine Estimated GFR POC Glucose Random Glucose Calcium Phosphorus Magnesium Total Bilirubin AST ALT Alkaline Phosphatase Ammonia 26 Total Protein Albumin TSH Cortisol Urine Color Urine Clarity Urine pH Ur Specific [place] Urine Protein Urine Glucose (UA) Urine Ketones Urine Occult Blood Urine Nitrate Urine Bilirubin Urine Urobilinogen Ur Leukocyte Esterase Urine WBC Micro UA Comment Urine Culture Comments Nasal Screen MRSA (PCR) Cancelled 01/13/18 01/13/18 01/14/18 18:29 20:50 00:13 WBC RBC Hgb Hct MCV MCH MCHC RDW Plt Count MPV Prelim Diff (Auto) Neut % (Auto) Lymph % (Auto) [place] % (Auto) Eos % (Auto) Baso % (Auto) Neut # (Auto) Lymph # (Auto) [place] # (Auto) Eos # (Auto) Baso # (Auto) WBC Differential Diff Scan Differential Comment Platelet Estimate Platelet Morphology Ovalocytes PT INR Sodium 134 L Potassium 4.0 Chloride 98 Carbon Dioxide 24.2 Anion Gap 12 BUN 49 H Creatinine 3.88 H Estimated GFR 15 L POC Glucose 80 80 Random Glucose 94 Calcium 8.9 Phosphorus Magnesium Total Bilirubin 1.5 H AST 35 ALT 34 Alkaline Phosphatase 96 Ammonia Total Protein 6.3 L Albumin 3.3 L TSH Cortisol Urine Color Urine Clarity Urine pH Ur Specific [place] Urine Protein Urine Glucose (UA) Urine Ketones Urine Occult Blood Urine Nitrate Urine Bilirubin Urine Urobilinogen Ur Leukocyte Esterase Urine WBC Micro UA Comment Urine Culture Comments Nasal Screen MRSA (PCR) 01/14/18 01/14/18 01/14/18 03:19 03:19 03:19 WBC 7.5 RBC 4.42 L Hgb 12.9 L Hct 39.2 MCV 88.7 MCH 29.2 MCHC 33.0 RDW 17.8 H Plt Count 101 L MPV 11.1 H Prelim Diff (Auto) Neut % (Auto) 63.0 Lymph % (Auto) 18.8 [place] % (Auto) 11.9 H Eos % (Auto) 5.2 H Baso % (Auto) 1.1 Neut # (Auto) 4.7 Lymph # (Auto) 1.4 [place] # (Auto) 0.9 Eos # (Auto) 0.4 Baso # (Auto) 0.1 WBC Differential . Diff Scan Differential Comment Auto diff final Platelet Estimate Platelet Morphology Ovalocytes PT 27.7 H INR 2.7 Sodium 136 Potassium 3.9 Chloride 99 Carbon Dioxide 24.7 Anion Gap 12 BUN 44 H Creatinine 3.75 H Estimated GFR 16 L POC Glucose Random Glucose 69 L Calcium 8.7 Phosphorus Magnesium Total Bilirubin 1.5 H AST 26 ALT 30 Alkaline Phosphatase 88 Ammonia Total Protein 5.8 L Albumin 3.0 L TSH Cortisol Urine Color Urine Clarity Urine pH Ur Specific [place] Urine Protein Urine Glucose (UA) Urine Ketones Urine Occult Blood Urine Nitrate Urine Bilirubin Urine Urobilinogen Ur Leukocyte Esterase Urine WBC Micro UA Comment Urine Culture Comments Nasal Screen MRSA (PCR) 01/14/18 01/14/18 01/14/18 03:35 08:32 09:11 WBC RBC Hgb Hct MCV MCH MCHC RDW Plt Count MPV Prelim Diff (Auto) Neut % (Auto) Lymph % (Auto) [place] % (Auto) Eos % (Auto) Baso % (Auto) Neut # (Auto) Lymph # (Auto) [place] # (Auto) Eos # (Auto) Baso # (Auto) WBC Differential Diff Scan Differential Comment Platelet Estimate Platelet Morphology Ovalocytes PT INR Sodium Potassium Chloride Carbon Dioxide Anion Gap BUN Creatinine Estimated GFR POC Glucose 80 61 L 69 Random Glucose Calcium Phosphorus Magnesium Total Bilirubin AST ALT Alkaline Phosphatase Ammonia Total Protein Albumin TSH Cortisol Urine Color Urine Clarity Urine pH Ur Specific [place] Urine Protein Urine Glucose (UA) Urine Ketones Urine Occult Blood Urine Nitrate Urine Bilirubin Urine Urobilinogen Ur Leukocyte Esterase Urine WBC Micro UA Comment Urine Culture Comments Nasal Screen MRSA (PCR) 01/14/18 01/14/18 01/14/18 09:46 12:03 16:17 WBC RBC Hgb Hct MCV MCH MCHC RDW Plt Count MPV Prelim Diff (Auto) Neut % (Auto) Lymph % (Auto) [place] % (Auto) Eos % (Auto) Baso % (Auto) Neut # (Auto) Lymph # (Auto) [place] # (Auto) Eos # (Auto) Baso # (Auto) WBC Differential Diff Scan Differential Comment Platelet Estimate Platelet Morphology Ovalocytes PT INR Sodium Potassium Chloride Carbon Dioxide Anion Gap BUN Creatinine Estimated GFR POC Glucose 75 103 108 Random Glucose Calcium Phosphorus Magnesium Total Bilirubin AST ALT Alkaline Phosphatase Ammonia Total Protein Albumin TSH Cortisol Urine Color Urine Clarity Urine pH Ur Specific [place] Urine Protein Urine Glucose (UA) Urine Ketones Urine Occult Blood Urine Nitrate Urine Bilirubin Urine Urobilinogen Ur Leukocyte Esterase Urine WBC Micro UA Comment Urine Culture Comments Nasal Screen MRSA (PCR) 01/14/18 01/14/18 01/14/18 18:00 20:44 23:28 WBC RBC Hgb Hct MCV MCH MCHC RDW Plt Count MPV Prelim Diff (Auto) Neut % (Auto) Lymph % (Auto) [place] % (Auto) Eos % (Auto) Baso % (Auto) Neut # (Auto) Lymph # (Auto) [place] # (Auto) Eos # (Auto) Baso # (Auto) WBC Differential Diff Scan Differential Comment Platelet Estimate Platelet Morphology Ovalocytes PT INR Sodium Potassium Chloride Carbon Dioxide Anion Gap BUN Creatinine Estimated GFR POC Glucose 87 110 Random Glucose Calcium Phosphorus Magnesium Total Bilirubin AST ALT Alkaline Phosphatase Ammonia Total Protein Albumin TSH Cortisol Urine Color Yellow Urine Clarity Clear Urine pH 5.0 Ur Specific [place] 1.006 Urine Protein Negative Urine Glucose (UA) Negative Urine Ketones Negative Urine Occult Blood Negative Urine Nitrate Negative Urine Bilirubin Negative Urine Urobilinogen Less than 2 Ur Leukocyte Esterase Negative Urine WBC Less than 1 Micro UA Comment Cath-culture not ind Urine Culture Comments Cath-cult not ind Nasal Screen MRSA (PCR) 01/15/18 01/15/18 01/15/18 03:50 03:50 03:50 WBC 6.1 RBC 4.48 L Hgb 13.0 Hct 39.6 MCV 88.3 MCH 29.1 MCHC 33.0 RDW 17.7 H Plt Count 117 L MPV 10.3 Prelim Diff (Auto) Neut % (Auto) 65.5 Lymph % (Auto) 18.7 [place] % (Auto) 10.7 H Eos % (Auto) 4.3 H Baso % (Auto) 0.8 Neut # (Auto) 4.0 Lymph # (Auto) 1.2 [place] # (Auto) 0.7 Eos # (Auto) 0.3 Baso # (Auto) 0.0 WBC Differential . Diff Scan Differential Comment Auto diff final Platelet Estimate Platelet Morphology Ovalocytes PT 24.3 H INR 2.4 Sodium 135 L Potassium 3.5 Chloride 97 L Carbon Dioxide 25.2 Anion Gap 13 BUN 41 H Creatinine 3.24 H Estimated GFR 19 L POC Glucose Random Glucose 83 Calcium 9.0 Phosphorus 3.8 Magnesium 2.0 Total Bilirubin 1.6 H AST 23 ALT 26 Alkaline Phosphatase 95 Ammonia Total Protein 6.1 L Albumin 3.0 L TSH 1.940 Cortisol Urine Color Urine Clarity Urine pH Ur Specific [place] Urine Protein Urine Glucose (UA) Urine Ketones Urine Occult Blood Urine Nitrate Urine Bilirubin Urine Urobilinogen Ur Leukocyte Esterase Urine WBC Micro UA Comment Urine Culture Comments Nasal Screen MRSA (PCR) 01/15/18 01/15/18 01/15/18 03:50 03:50 08:13 WBC RBC Hgb Hct MCV MCH MCHC RDW Plt Count MPV Prelim Diff (Auto) Neut % (Auto) Lymph % (Auto) [place] % (Auto) Eos % (Auto) Baso % (Auto) Neut # (Auto) Lymph # (Auto) [place] # (Auto) Eos # (Auto) Baso # (Auto) WBC Differential Diff Scan Differential Comment Platelet Estimate Platelet Morphology Ovalocytes PT INR Sodium Potassium Chloride Carbon Dioxide Anion Gap BUN Creatinine Estimated GFR POC Glucose 89 83 Random Glucose Calcium Phosphorus Magnesium Total Bilirubin AST ALT Alkaline Phosphatase Ammonia Total Protein Albumin TSH Cortisol 12.6 Urine Color Urine Clarity Urine pH Ur Specific [place] Urine Protein Urine Glucose (UA) Urine Ketones Urine Occult Blood Urine Nitrate Urine Bilirubin Urine Urobilinogen Ur Leukocyte Esterase Urine WBC Micro UA Comment Urine Culture Comments Nasal Screen MRSA (PCR) 01/15/18 12:29 WBC RBC Hgb Hct MCV MCH MCHC RDW Plt Count MPV Prelim Diff (Auto) Neut % (Auto) Lymph % (Auto) [place] % (Auto) Eos % (Auto) Baso % (Auto) Neut # (Auto) Lymph # (Auto) [place] # (Auto) Eos # (Auto) Baso # (Auto) WBC Differential Diff Scan Differential Comment Platelet Estimate Platelet Morphology Ovalocytes PT INR Sodium Potassium Chloride Carbon Dioxide Anion Gap BUN Creatinine Estimated GFR POC Glucose 79 Random Glucose Calcium Phosphorus Magnesium Total Bilirubin AST ALT Alkaline Phosphatase Ammonia Total Protein Albumin TSH Cortisol Urine Color Urine Clarity Urine pH Ur Specific [place] Urine Protein Urine Glucose (UA) Urine Ketones Urine Occult Blood Urine Nitrate Urine Bilirubin Urine Urobilinogen Ur Leukocyte Esterase Urine WBC Micro UA Comment Urine Culture Comments Nasal Screen MRSA (PCR) Result Diagrams: 01/15/18 03:50 01/15/18 03:50 Microbiology: Microbiology 01/13/18 18:25 Aerobic Blood Culture - Preliminary Blood - Peripheral No growth in 2 days Anaerobic Blood Culture - Preliminary No growth in 2 days 01/13/18 18:29 Aerobic Blood Culture - Preliminary Blood - Peripheral No growth in 2 days Anaerobic Blood Culture - Preliminary No growth in 2 days Imaging: Impressions Chest X-Ray 01/13/18 16:12 CONCLUSION: Probable mild CHF Head CT 01/13/18 16:51 CONCLUSION: 1. Negative for acute process . Procedures: . Assessment and Plan - Disease Oriented Problem List (1) Acute kidney injury superimposed on chronic kidney disease (2) COPD (chronic obstructive pulmonary disease) (3) Obstructive sleep apnea on CPAP (4) Atrial fibrillation (5) Hypothyroid (6) History of permanent cardiac pacemaker placement (7) History of coronary artery bypass graft (8) Acute on chronic systolic CHF (congestive heart failure), NYHA class 4 (9) Cardiomyopathy (10) Aortic stenosis (11) Mitral regurgitation (12) History of cirrhosis (13) Anemia (14) Hypotension Pertinent Non-Medical Issues: Psychosocial: Originally from [place]. 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 Spiritual:Buddhism Legal:Pt has been alert and oriented, however orientation, alertness fluctuates , likely secondary to his multiple medical conditions. Best supported in decision-making by his who would be appropriate legal proxy. Ethical issues impacting care: Important Contacts: Katie Calderon [phone] [facility] [phone] Prognosis: This patient was admitted to [facility] for acute inpatient rehabilitation on 01/08/18. He has had multiple hospitalizations this year for CHF, shortness of breath and edema. He has had acute on chronic renal failure. He has had worsening BUN and multiple chronic medical comorbidities including MALICK requiring CPAP, O2 dependent, liver cirrhosis, A. fib on chronic Coumadin, aortic stenosis. He would not be a good candidate for dialysis due to multiorgan issues. He has had hypotension. increasingly difficult to treat his heart failure secondary to renal failure, renal failure worsening secondary to cardiac status. His conditions will continue to worsen even with ongoing aggressive management. Appropriate for hospice for ES heart failure, if goals compatible. Code Status: Full Code Plan: Legal decision maker: Legal:Pt has been alert and oriented, however orientation , alertness fluctuates, likely secondary to his multiple medical conditions. Best supported in decision-making by his who would be appropriate legal proxy Goals: , son struggling to accept patient decline and deteriorating condition. They are not ready for a DNR. They have met with hospice and apparently have elected to proceed with hospice enrollment. Possible d/c home with hospice in the coming days. CODE STATUS: full code. SYMPTOMS: --Dyspnea-poor activity tolerance. Dyspnea on any exertion. O2 dependent. MALICK uses CPAP at night. End-stage heart failure EF 20-25%. Underlying COPD. Last CXR 01/14=Probable mild CHF . On PRN nebulizers. If goals comfort oriented benefit from low dose PRN opiates, benzodiazepines for tachypnea, dyspnea. Will cont to have exacerbations of dyspnea/fluid overload 2/2 renal, cardiac pathology. endorses breathing feels better today --Weakness/debility-patient with multiple hospitalizations during 2018 for CHF, recently discharged to [facility] and rehab for rehab, and then to [facility] from [facility]. He has very limited activity tolerance secondary to medical conditions which limited his ability to rehabilitate. He has impaired coordination and is requiring assistance with ADLs. Likely limited to minimal benefits from ongoing rehabilitation to deconditioning, multiple advanced disease processes. --Pain-has endorsed pain to bilateral lower extremities. denies pain today. + chronic edema, compression wraps. probably neuropathic component. On lyrica, + prn ultram, tylenol. Avoid use/ Cautious use of stronger prns /opiates due to neuro/resp status if goals aggressive. No apparent pain today during exam. If goals comfort oriented may benefit from PRN such as norco. Palliative care will continue to follow during hospital course as condition evolves, to assist patient/decision-maker with understanding of medical conditions, weighing benefits/burdens of treatment options, for clarification of goals of treatment. Additionally will assist with any symptoms of palliative concern Attestation Attestation: To help prompt me to consider important information that might be impacting today's encounter and assessment, information from prior notes written by myself or my colleagues may have been "brought forward" into today's note. My signature on this note, however, is an attestation that I personally performed the exam, history, and/or decision-making noted today, and, unless otherwise indicated, the interactions with patient, family, and staff as well as the review of records all occurred today. I also attest that the listed assessment and stated plan reflect my best clinical judgment today based on the combination of historical information, prior notes, and today's exam/ interactions. When time spent is documented, it refers only to time spent today by the signer, or if indicated, combined time spent today by collaborating physician/nurse practitioner.
[2018-01-15] MEDS: Dextrose 10% in Water Inj 500 ML IV.CONT SCH (18:14)
[2018-01-16] MEDS: Insulin NovoLIN Regular Correctional Sugar Inj SQ SCH ×6 (02:49→22:03)
[2018-01-16] MEDS: Chlorhexidine Gluconate 2% 1 Pack (2 Cloths) TOPICAL SCH (06:07)
[2018-01-16] MEDS: Levothyroxine 88 MCG Tablet PO SCH (06:08)
[2018-01-16 07:16] LABS: Prothrombin Time 20.1 sec (9.8-11.6)
[2018-01-16 07:47] LABS: Calcium 8.8 mg/dL (8.5-10.1); Carbon Dioxide 30.2 meq/L (21.0-32.0); Potassium 3.4 meq/L (3.5-5.1)
--- NOTE | 2018-01-16 08:35 | P.PNIM ---
Subjective Interval history: f/u; renal insufficiency in no acute distress. looks fairly comfortable. denies pain and with no fever. Physical Exam Vital signs: Vital Signs 01/15/18 09:03 01/15/18 11:44 01/15/18 12:00 Temperature 98 F Pulse Rate 76 100 H 103 H Respiratory Rate 19 25 H 22 Blood Pressure 89/74 L Pulse Oximetry 96 97 01/15/18 15:17 01/15/18 16:00 01/15/18 20:00 Temperature 97.8 F 99.5 F Pulse Rate 114 H 125 H 122 H Respiratory Rate 20 24 27 H Blood Pressure 93/68 L 96/74 L Pulse Oximetry 96 94 L 01/15/18 20:44 01/16/18 00:00 01/16/18 04:00 Temperature 98.8 F 98.5 F Pulse Rate 115 H 96 H 94 H Respiratory Rate 20 20 20 Blood Pressure 96/61 L 103/57 L Pulse Oximetry 94 L 95 96 01/16/18 08:08 Temperature Pulse Rate 94 H Respiratory Rate 20 Blood Pressure Pulse Oximetry 96 Intake & Output 01/15/18 01/16/18 01/16/18 18:59 06:59 18:59 Intake Total 150 / 150 Balance 150 / 150 Intake: IV 100 / 100 Maxipime Inj 500 MG In NS Inj 100 / 100 100 ML @ 200 mls/hr IV.SIG Q24H RADHA Rx#:[id number] Oral 50 / 50 Other: # Voids 3 Date of Last Bowel Movement 01/14/18 01/14/18 # Bowel Movements 0 - Constitutional no acute distress - Routine Respiratory Exam Present: CTA bilaterally - Routine Cardiovascular Exam Present: RRR - Routine Abdominal Exam Present: soft - Routine Extremities Exam Comments: no pedal edema. - Routine Neurological Exam Present: alert (but not oriented to time or place.) Results - Labs CBC & Chem 7: 01/15/18 03:50 01/16/18 06:53 Laboratory Results - last 24 hr 01/15/18 01/15/18 01/15/18 12:29 20:45 21:58 PT INR Sodium Potassium Chloride Carbon Dioxide Anion Gap BUN Creatinine Estimated GFR POC Glucose 79 119 H Random Glucose Calcium Ammonia 23 01/16/18 01/16/18 01/16/18 06:05 06:53 06:53 PT 20.1 H INR 2.0 Sodium 136 Potassium 3.4 L Chloride 94 L Carbon Dioxide 30.2 Anion Gap 12 BUN 37 H Creatinine 2.88 H Estimated GFR 21 L POC Glucose 87 Random Glucose 93 Calcium 8.8 Ammonia Microbiology 01/13/18 18:25 Blood - Peripheral Aerobic Blood Culture - Preliminary No growth in 2 days 01/13/18 18:25 Blood - Peripheral Anaerobic Blood Culture - Preliminary No growth in 2 days 01/13/18 18:29 Blood - Peripheral Aerobic Blood Culture - Preliminary No growth in 2 days 01/13/18 18:29 Blood - Peripheral Anaerobic Blood Culture - Preliminary No growth in 2 days Assessment and Plan - Plan Depressive disorder NOS Allergic rhinitis Acetaminophen 650 p.o. every 6 hours as needed fever Continue duloxetine 30 mg twice daily/home medication for depression Continue cetirizine 10 mg daily for allergic rhinitis Resuming ropinirole 1 mg daily Atrial fibrillation rate controlled Severe aortic stenosis chronic systolic heart failure ejection fraction 20-25% History of biventricular ICD Essential hypertension Hyperlipidemia Coronary artery disease status post stent Continue aspirin 81 mg daily/home medication Holding carvedilol 3.125 mg p.o. twice daily in light of hypotension Resumed dronedarone 400 mg twice daily for atrial fibrillation. Resumed Midodrine 5 mg twice daily for hypotension on Bumex IV Holding pravastatin 40 mg a day for distal edema. Resume clinically indicated Acute respiratory insufficiency Obstructive sleep apnea Nasal cannula to maintain saturations greater than equal 92% Incentive spirometry while awake Albuterol/ipratropium aerosols every 4 hours with albuterol aerosols every 2 hours as needed for dyspnea CPAP as needed Gastroesophageal reflux disease Elevated total bilirubin Hypoalbuminemia History of liver cirrhosis biopsy-proven Renal diet Currently on pantoprazole 40 mg daily./On omeprazole 20 mg at home Docusate sodium/senna 1 tablet twice daily for bowel regimen Hypothyroidism Relative hypoglycemia taper down D10 gradually and continue to monitor blood sugar. Continue levothyroxine at 88 mcg daily. Acute kidney injury in setting of chronic kidney disease stage IIIa improving- avoid nephrotoxic agents- monitor renal function- nephrology following. Chronic warfarin use Normocytic anemia Thrombocytopenia CBC stable. No indication for transfusion of blood products at this time. Resumed warfarin at 1 mg q. Thursday. - consulted pharmacy for coumadin dosing. Urinary tract infection E faecalis currently on cefepime repeated UA negative- will dc Cefepime. Generalized debility PT evaluate and treat FEN Replace electrolytes as clinically indicated Prophylaxis -GI- Pantoprazole- - - DVT SCDs heparin subcu palliative care following. Discharge Planning: palliative care following; family considering hospice.
[2018-01-16] MEDS: Senna/Docusate Sodium 8.6/50 MG Tablet PO SCH ×2 (09:30→22:04)
[2018-01-16] MEDS: Ascorbic Acid 500 MG Tablet PO SCH (09:30)
[2018-01-16] MEDS: Ferrous Sulfate 325 MG Tablet PO SCH (11:42)
--- NOTE | 2018-01-16 14:08 | P.PNNP ---
Subjective Interval history: no acute events Physical Exam Vital signs: Vital Signs 01/15/18 15:17 01/15/18 16:00 01/15/18 20:00 Temperature 97.8 F 99.5 F Pulse Rate 114 H 125 H 122 H Respiratory Rate 20 24 27 H Blood Pressure 93/68 L 96/74 L Pulse Oximetry 96 94 L 01/15/18 20:44 01/16/18 00:00 01/16/18 04:00 Temperature 98.8 F 98.5 F Pulse Rate 115 H 96 H 94 H Respiratory Rate 20 20 20 Blood Pressure 96/61 L 103/57 L Pulse Oximetry 94 L 95 96 01/16/18 08:00 01/16/18 08:08 01/16/18 12:47 Temperature 98.4 F Pulse Rate 85 94 H 94 H Respiratory Rate 16 20 20 Blood Pressure 87/61 L Pulse Oximetry 98 96 Intake & Output 01/15/18 01/16/18 01/16/18 18:59 06:59 18:59 Intake Total 150 / 150 Balance 150 / 150 Intake: IV 100 / 100 Maxipime Inj 500 MG In NS Inj 100 / 100 100 ML @ 200 mls/hr IV.SIG Q24H RADHA Rx#:[id number] Oral 50 / 50 Other: # Voids 3 Date of Last Bowel Movement 01/14/18 01/14/18 # Bowel Movements 0 - Constitutional no acute distress - Routine HEENT Exam Head: Present: normocephalic Eye: Present: EOMI ENT: Present: mucous membranes moist - Routine Neck Exam Present: supple - Routine Respiratory Exam Present: decreased breath sounds - Routine Cardiovascular Exam Present: RRR - Routine Abdominal Exam Present: soft - Routine Extremities Exam Comments: edema - Routine Skin Exam Present: intact - Detailed Neurological Exam: Coma Scale Eye Opening: Spontaneous Assessment and Plan - Assessment (1) Acute kidney injury superimposed on chronic kidney disease Code(s): N17.9 - Acute kidney failure, unspecified; N18.9 - Chronic kidney disease, unspecified Status: Acute Onset Date: ~12/21/17 Plan: He has underlying CKD 3-4. It is unclear what his true baseline is. His renal function overall is poor, but gradually improving. Has cardiorenal type picture. Continue Bumex Q8H, spirnolactone. Monitor output. Creatinine 3.2 -> 2.8 . On D10@15 ml/hr as a carbohydrate source. Avoid other IVFs. Repeat labs daily Monitor urine output. Avoid nephrotoxic agents. Overall his prognosis is guarded to poor.. He most likely will not tolerate dialysis given heart failure. They ( and older child) are considering converting to comfort focused care moving forward if he continues to decline. (2) Acute on chronic systolic CHF (congestive heart failure), NYHA class 4 Code(s): I50.23 - Acute on chronic systolic (congestive) heart failure Status : Acute Onset Date: ~12/21/17 Plan: Ischemic cardiomyopathy with EF of 20-25%. Continue diuretics. See above. (3) Thrombocytopenia Code(s): D69.6 - Thrombocytopenia, unspecified Status: Chronic Plan: Possibly due to liver disease. Stable, monitor. (4) Atrial fibrillation Code(s): I48.91 - Unspecified atrial fibrillation Status: Chronic Plan: tachycardic today. On dose adjusted Coumadin. INR therapeutic currently. (5) History of cirrhosis Code(s): Z87.19 - Personal history of other diseases of the digestive system Status: Acute Plan: Etiology is unclear. (6) Anemia Code(s): D64.9 - Anemia, unspecified Status: Acute Plan: Normocytic anemia. Hb stable. Monitor for now.
--- NOTE | 2018-01-16 14:58 | P.PNADD ---
Addendum to Inpatient Note Reason for Addendum: Additional Documentation (met with the and the son and d/w the RN;the code status will be changed to DNR per the family request; they're willing to take him home with hospice tomorrow.)
[2018-01-17] MEDS: Chlorhexidine Gluconate 2% 1 Pack (2 Cloths) TOPICAL SCH (06:25)
[2018-01-17] MEDS: Levothyroxine 88 MCG Tablet PO SCH (06:48)
--- NOTE | 2018-01-17 07:42 | P.PNIM ---
Subjective Interval history: f/u; renal insufficiency in no acute distress. denies pain. no new complaints. Physical Exam Vital signs: Vital Signs 01/16/18 08:00 01/16/18 08:08 01/16/18 12:00 Temperature 98.4 F 97.8 F Pulse Rate 92 H 94 H 82 Respiratory Rate 16 20 18 Blood Pressure 87/61 L 94/65 L Pulse Oximetry 98 96 98 01/16/18 12:47 01/16/18 16:00 01/16/18 16:26 Temperature 97.3 F L Pulse Rate 94 H 101 H 94 H Respiratory Rate 20 16 16 Blood Pressure 98/69 L Pulse Oximetry 94 L 01/16/18 20:00 01/16/18 20:15 01/16/18 23:43 Temperature 97.8 F Pulse Rate 99 H 99 H 114 H Respiratory Rate 16 20 22 Blood Pressure 110/64 Pulse Oximetry 96 01/17/18 00:00 01/17/18 04:00 Temperature 98 F 98 F Pulse Rate 97 H 95 H Respiratory Rate 17 16 Blood Pressure 112/68 109/66 Pulse Oximetry 95 96 Intake & Output 01/16/18 01/17/18 01/17/18 18:59 06:59 18:59 Output Total 900 / 900 Balance -900 / -900 Weight 118.3 kg Output: Urine 900 / 900 Other: # Urine Diapers 3 Date of Last Bowel Movement 01/16/18 # Bowel Movements 2 - Constitutional no acute distress - Routine Respiratory Exam Present: CTA bilaterally - Routine Cardiovascular Exam Present: RRR - Routine Abdominal Exam Present: soft - Routine Extremities Exam Comments: no pedal edema. - Routine Neurological Exam Present: alert Results - Labs CBC & Chem 7: 01/15/18 03:50 01/16/18 06:53 Laboratory Results - last 24 hr 01/16/18 01/16/18 01/16/18 06:53 13:18 16:36 Sodium 136 Potassium 3.4 L Chloride 94 L Carbon Dioxide 30.2 Anion Gap 12 BUN 37 H Creatinine 2.88 H Estimated GFR 21 L POC Glucose 108 115 H Random Glucose 93 Calcium 8.8 01/16/18 21:55 Sodium Potassium Chloride Carbon Dioxide Anion Gap BUN Creatinine Estimated GFR POC Glucose 94 Random Glucose Calcium Microbiology 01/13/18 18:25 Blood - Peripheral Aerobic Blood Culture - Preliminary No growth in 3 days 01/13/18 18:25 Blood - Peripheral Anaerobic Blood Culture - Preliminary No growth in 3 days 01/13/18 18:29 Blood - Peripheral Aerobic Blood Culture - Preliminary No growth in 3 days 01/13/18 18:29 Blood - Peripheral Anaerobic Blood Culture - Preliminary No growth in 3 days Assessment and Plan - Plan Depressive disorder NOS Allergic rhinitis Acetaminophen 650 p.o. every 6 hours as needed fever Continue duloxetine 30 mg twice daily/home medication for depression Continue cetirizine 10 mg daily for allergic rhinitis Resuming ropinirole 1 mg daily Atrial fibrillation rate controlled Severe aortic stenosis chronic systolic heart failure ejection fraction 20-25% History of biventricular ICD Essential hypertension Hyperlipidemia Coronary artery disease status post stent Continue aspirin 81 mg daily/home medication Holding carvedilol 3.125 mg p.o. twice daily in light of hypotension Resumed dronedarone 400 mg twice daily for atrial fibrillation. Resumed Midodrine 5 mg twice daily for hypotension on Bumex IV Holding pravastatin 40 mg a day for distal edema. Resume clinically indicated Acute respiratory insufficiency Obstructive sleep apnea Nasal cannula to maintain saturations greater than equal 92% Incentive spirometry while awake Albuterol/ipratropium aerosols every 4 hours with albuterol aerosols every 2 hours as needed for dyspnea CPAP as needed Gastroesophageal reflux disease Elevated total bilirubin Hypoalbuminemia History of liver cirrhosis biopsy-proven Renal diet Currently on pantoprazole 40 mg daily./On omeprazole 20 mg at home Docusate sodium/senna 1 tablet twice daily for bowel regimen Hypothyroidism Relative hypoglycemia taper down D10 gradually and continue to monitor blood sugar. Continue levothyroxine at 88 mcg daily. Acute kidney injury in setting of chronic kidney disease stage IIIa improving- avoid nephrotoxic agents- monitor renal function- nephrology following. Chronic warfarin use Normocytic anemia Thrombocytopenia CBC stable. No indication for transfusion of blood products at this time. Resumed warfarin at 1 mg q. Thursday. - consulted pharmacy for coumadin dosing. Urinary tract infection E faecalis currently on cefepime repeated UA negative- will dc Cefepime. Generalized debility PT evaluate and treat FEN Replace electrolytes as clinically indicated Prophylaxis -GI- Pantoprazole- - - DVT SCDs heparin subcu palliative care following. Discharge Planning: dc home with hospice when arrangements made. see med list. d/w the patient. previously had a lengthy d/w the and the son. time spent 35 min.
--- NOTE | 2018-01-17 07:50 | P.DS ---
Date of admission: 01/13/18 16:06 Primary care physician: No Primary Care Physician Brief History from admission: The patient is a 77-year-old male with multiple comorbidities which include cirrhosis of the liver, COPD, obstructive sleep apnea on CPAP,hypothyroidism, atrial fibrillation on Coumadin, hypertension, coronary artery disease with history of coronary artery bypass graft and aortic stenosis. In addition, the patient has a cardiomyopathy with ejection fraction of 20% to 25% on the last echo from 12/07/2017 and has a biventricular ICD. He had several admissions this year due to [id number] CHF. The patient was admitted to [facility] on 01/08/2018 for CHF compensation and renal failure. The patient was found to have a BUN of 37 with creatinine of 2.45 on admission and during his hospital course, he was seen by nephrology service and palliative care. The patient had worsening renal dysfunction with a BUN of 44 and creatinine 3.90. He had an ultrasound of the abdomen on 01/11, which showed cirrhosis of liver with small amount of ascites, trace bilateral pleural effusions with no evidence of hydronephrosis. The patient was placed on diuretics. In [place] [facility], patient had an episode of hypotension and was subsequently transferred to ICU for close observation. DS: Summary Hospital Course: patient was initially admitted under critical care service due to hypotension and renal insufficiency. he was started on IV fluid. nephrology service was consulted. his BP meds were held. his BP improved along with his renal function. he was found to have hypoglycemia for which he was started on D10- his hypoglycemia resolved. he was seen by palliative care. after my d/w the patient's son and , his code status was changed to " DNR" and decision was made to proceed with hospice. - Time Spent with Patient Total time spent providing and/or coordinating discharge services: Greater than 30 minutes (35 min.) - Quality: VTE Deep Vein Thrombosis/Pulmonary Embolism Present on Admission: No Exam Vital signs: Vital Signs 01/16/18 08:00 01/16/18 08:08 01/16/18 12:00 Temperature 98.4 F 97.8 F Pulse Rate 92 H 94 H 82 Respiratory Rate 16 20 18 Blood Pressure 87/61 L 94/65 L Pulse Oximetry 98 96 98 01/16/18 12:47 01/16/18 16:00 08/18/18 16:26 Temperature 97.3 F L Pulse Rate 94 H 101 H 94 H Respiratory Rate 20 16 16 Blood Pressure 98/69 L Pulse Oximetry 94 L 01/16/18 20:00 01/16/18 20:15 01/16/18 23:43 Temperature 97.8 F Pulse Rate 99 H 99 H 114 H Respiratory Rate 16 20 22 Blood Pressure 110/64 Pulse Oximetry 96 01/17/18 00:00 01/17/18 04:00 Temperature 98 F 98 F Pulse Rate 97 H 95 H Respiratory Rate 17 16 Blood Pressure 112/68 109/66 Pulse Oximetry 95 96 Intake & Output 01/16/18 01/17/18 01/17/18 18:59 06:59 18:59 Output Total 900 / 900 Balance -900 / -900 Weight 118.3 kg Output: Urine 900 / 900 Other: # Urine Diapers 3 Date of Last Bowel Movement 01/16/18 # Bowel Movements 2 - Constitutional no acute distress - Routine Respiratory Exam Present: CTA bilaterally - Routine Cardiovascular Exam Present: RRR - Routine Abdominal Exam Present: soft - Routine Extremities Exam Comments: no pedal edema. - Routine Neurological Exam Present: alert Results Procedures completed during hospitalization: none. Labs on day of discharge: Labs from last 24 hours 01/17/18 01/17/18 01/16/18 06:27 06:27 21:55 PT Pending INR Pending Sodium Pending Potassium Pending Chloride Pending Carbon Dioxide Pending Anion Gap Pending BUN Pending Creatinine Pending Estimated GFR POC Glucose 94 Random Glucose Pending Calcium Pending 01/16/18 01/16/18 01/16/18 16:36 13:18 06:53 PT INR Sodium 136 Potassium 3.4 L Chloride 94 L Carbon Dioxide 30.2 Anion Gap 12 BUN 37 H Creatinine 2.88 H Estimated GFR 21 L POC Glucose 115 H 108 Random Glucose 93 Calcium 8.8 Preliminary micro results at discharge 01/13/18 18:25 Aerobic Blood Culture - Preliminary Blood - Peripheral No growth in 3 days Anaerobic Blood Culture - Preliminary No growth in 3 days 01/13/18 18:29 Aerobic Blood Culture - Preliminary Blood - Peripheral No growth in 3 days Anaerobic Blood Culture - Preliminary No growth in 3 days - Impressions ITS Impressions Chest X-Ray 01/13/18 16:12 CONCLUSION: Probable mild CHF Head CT 01/13/18 16:51 CONCLUSION: 1. Negative for acute process . Discharge Plan - Discharge Disposition Patient Disposition: 50 Hospice/Home - Discharge Condition Condition: Fair - Discharge Order Discharge Orders: Discharge Order (Routine); Ordered 01/17/18 Ordered By: Cathy Newton - Physicians Team Primary Care Provider: Primary Care Kirsty Zee Attending Provider: Cathy Newton Other Providers: Alvaro Preston MD ; Van Cisneros MD - Rxs /Orders / Referrals /Forms Prescriptions: New bumetanide 0.25 mg/mL Solution 2 mg IV.PUSH TID RF: 0 Continue acetaminophen 325 mg Tablet 650 mg PO Q4H PRN (Reason: Fever/ Pain 1-6) RF: 0 ascorbic acid (vitamin C) [Vitamin C] 500 mg Tablet 500 mg PO DAILY aspirin 81 mg Tablet,Chewable 81 mg PO DAILY bisacodyl [Bisac-Evac] 10 mg Suppository 10 mg UT DAILY PRN (Reason: Severe Consitipation) RF: 0 cetirizine 10 mg Tablet 10 mg PO DAILY cholecalciferol (vitamin D3) 1,000 unit Tablet 1,000 unit PO DAILY dronedarone [Multaq] 400 mg Tablet 400 mg PO BID duloxetine 30 mg Capsule,Delayed Release(Dr/Ec) 30 mg PO BID ferrous sulfate 325 mg (65 mg iron) Tablet 325 mg PO DAILY lactulose 20 gram/30 mL Solution 30 ml PO DAILY PRN (Reason: Severe Consitipation) RF: 0 levothyroxine 88 mcg Tablet 88 mcg PO DAILY magnesium oxide 500 mg Tablet 500 mg PO DAILY midodrine 5 mg Tablet 5 mg PO BID omeprazole 20 mg Capsule,Delayed Release(Dr/Ec) 20 mg PO DAILY pravastatin 40 mg Tablet 40 mg PO DAILY ropinirole 1 mg Tablet 1 mg PO HS warfarin [Coumadin] 1 mg Tablet 1.5 mg PO DAILY@1600 RF: 0 Discontinued amoxicillin 250 mg Capsule 500 mg PO BID RF: 0 bumetanide 0.25 mg/mL Solution 2 mg IV.PUSH BID RF: 0 carvedilol 3.125 mg Tablet 3.125 mg PO BID lactulose 20 gram/30 mL Solution 30 ml PO BID RF: 0 lidocaine [Lidoderm] 5 % Adhesive Patch,Medicated 1 patch Transdermal DAILY@2000 RF: 0 magnesium hydroxide [Milk of Magnesia] 400 mg/5 mL Suspension 30 ml PO Q12H PRN (Reason: Mild Constipation) RF: 0 metolazone 5 mg Tablet 5 mg PO DAILY RF: 0 sennosides [Senna Lax] 8.6 mg Tablet 17.2 mg PO Q12H PRN (Reason: Moderate Constipation) RF: 0 spironolactone [Aldactone] 25 mg Tablet 25 mg PO DAILY tramadol [Ultram] 50 mg Tablet 50 mg PO Q6H PRN (Reason: Pain 7-10) RF: 0 No Action ipratropium-albuterol 0.5 mg-3 mg(2.5 mg base)/3 mL Solution For Nebulization 1 amp NEB Q6HR WHILE AWAKE NEB RF: 0 ipratropium-albuterol 0.5 mg-3 mg(2.5 mg base)/3 mL Solution For Nebulization 1 amp NEB Q2HR NEB PRN (Reason: Shortness Of Breath/Wheezing) RF: 0 Referrals: Primary Care Physici,No [Primary Care Provider] - See Instructions
[2018-01-17 08:03] LABS: INR 1.7 Ratio
[2018-01-17] MEDS: Ferrous Sulfate 325 MG Tablet PO SCH (08:06)
[2018-01-17] MEDS: Ascorbic Acid 500 MG Tablet PO SCH (08:06)
[2018-01-17] MEDS: Senna/Docusate Sodium 8.6/50 MG Tablet PO SCH (08:06)
[2018-01-17 08:21] LABS: Carbon Dioxide 33.8 meq/L (21.0-32.0)
[2018-01-17] MEDS ORDERED: Sodium Chlor 0.9% Inj 250 ML IV.SIG ONE (12:24)
== END 2018-01-17 14:14 | disposition hospice, home (50) ==
LOC: HIMC 16:06 → N06 01-15 23:14
PROVIDERS: ADMIT Internal Medicine; ATTEND Internal Medicine